=== PATIENT | female | born 1955 | race Caucasian/White ===

== ENCOUNTER 2016-08-01 13:26 | Outpatient (CLI) | payer BC | END 2016-08-01 13:27 | disposition critical access hospital (66) | LOC: EMS 13:26 | PROVIDERS: ATTEND Surgery | DX: R07.9 Chest pain, unspecified (principal); R11.0 Nausea | CPT/HCPCS: A0425; A0427 ==

== ENCOUNTER 2016-08-01 13:39 | Observation (INO) | payer BC ==
[2016-08-01] MEDS ORDERED: NITROGLYCERIN 2% PASTE TOP STA (13:56)
[2016-08-01] MEDS ORDERED: NITROGLYCERIN 2% PASTE TOP ONE (14:05)
--- NOTE | 2016-08-01 14:12 | ED Physician Documentation ---
History of Present Illness - Stated complaint Stated Complaint: CP - Chief complaint Chief Complaint: Cardiac - Additonal information Additional information: hx from EMS and pt 61 f hx CAD s/p ME stents approx 2 weeks s/p laminectomy and was hospitalized for 4 days this AM was doing PT and developed chest discomfort that feels like her prior cardiac event no SOA diaphoresis but + nausea no leg pain or swelling Review of Systems Constitutional: denies: Fever, Chills, Sweats Cardiac: reports: Chest pain / pressure Respiratory: denies: Dyspnea GI: reports: Nausea Musculoskeletal: denies: Extremity pain, Extremity swelling Endocrine: denies: Easy bruising / bleeding Immunocompromised: denies: Immunocompromised PD PAST MEDICAL HISTORY - Past Medical History Past Medical History: Yes Cardiovascular: High cholesterol, Coronary artery disease, ME Respiratory: None Neuro: Other Endocrine/Autoimmune: Other Psych: Depression, Anxiety, Post traumatic stress disorder, Other Musculoskeletal: Osteoarthritis, Fatigue, Chronic back pain, Other - Past Surgical History Past Surgical History: Yes Ortho: Spine surgery Cardiovascular: Cardiac catheterization, Angioplasty - Allergies Allergies/Adverse Reactions: Allergies Allergy/AdvReac Type Severity Reaction Status Date / Time bupropion HCl * Allergy Anaphylaxis Verified 08/01/16 13:51 [From Wellbutrin] - Social History Does the pt smoke?: No Smoking Status: Never smoker PD ED PE NORMAL - Vitals Vital signs reviewed: Yes - General General: Alert and oriented X 3 - HEENT HEENT: Atraumatic - Cardiac Cardiac: RRR - Respiratory Respiratory: No respiratory distress, Clear bilaterally - Abdomen Abdomen: Soft, Non tender - Neuro Neuro: Alert and oriented X 3 Results - Vitals Vitals: Vital Signs - 24 hr 08/01/16 13:40 Temperature 35.9 C L Heart Rate 82 Respiratory 15 Rate Blood Pressure 141/76 H O2 Saturation 97 Oxygen O2 Source Room air - EKG (time done) 1351 Rate: Rate (enter#) Rhythm: NSR [place]: Normal Intervals: Prolonged QT Ischemia: Normal ST segments 1532 Rate: Rate (enter#) (83) Rhythm: NSR Intervals: Prolonged QT Ischemia: ST depression (slight inferior leads). No: ST elevation c/w ischemia - Labs Labs: Laboratory Tests 08/01/16 08/01/16 08/01/16 14:36 14:36 14:36 WBC 5.5 RBC 3.64 L Hgb 11.2 L Hct 33.8 L MCV 92.7 MCH 30.7 MCHC 33.2 RDW 14.7 Plt Count 340 MPV 6.8 L Neut # 3.9 Lymph # 1.0 L Evangeline # 0.4 Eos # 0.2 Baso # 0.0 Absolute Nucleated RBC 0.00 Nucleated RBCs 0.0 Sodium 136 Potassium 3.3 L Chloride 104 Carbon Dioxide 22 Anion Gap 10.0 BUN 13 Creatinine 0.9 Estimated GFR (MDRD) 63 L Glucose 155 H Calcium 8.6 Total Bilirubin 0.6 AST 30 ALT 22 Alkaline Phosphatase 98 Troponin I 0.06 Total Protein 6.3 L Albumin 3.3 Globulin 3.0 Albumin/Globulin Ratio 1.1 Lipase 13 L - Rads (name of study) CXR Radiology: See rad report (NACPD) PD MEDICAL DECISION MAKING - ED course ED course: 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
[2016-08-01] MEDS ORDERED: PROMETHAZINE INJ 12.5 MG in SODIUM CHLORIDE 0.9% 50 ML IV STA ×2 (14:14→15:24)
[2016-08-01] MEDS ORDERED: PROMETHAZINE 25 MG/1 ML VIAL ONE ×2 (14:18→15:38)
--- NOTE | 2016-08-01 14:20 | XRAY Preliminary Report ---
Exam: XR Chest 1 View IMPRESSION: Normal single view chest. [facility] SITE ID: [id number]
--- NOTE | 2016-08-01 14:30 | XRAY Report ---
EXAM: CHEST RADIOGRAPHY EXAM DATE: 08/01/2016 02:13 PM. CLINICAL HISTORY: Chest pain. COMPARISON: None. TECHNIQUE: 1 view. FINDINGS: Lungs/Pleura: No focal opacities evident. No pleural effusion. No pneumothorax. Mediastinum: Within exam limitations, cardiomediastinal contour is normal. Other: None. IMPRESSION: Normal single view chest. [facility] Referring Provider Line: [phone] SITE ID: [id number]
[2016-08-01 14:44] LABS: BASOPHILS % (AUTO) 0.7 %; EOSINOPHILS # (AUTO) 0.2 10^3/uL (0.0-0.7); EOSINOPHILS % (AUTO) 3.5 %; HCT - HEMATOCRIT 33.8 % (37.0-47.0); HGB - HEMOGLOBIN 11.2 g/dL (12.0-16.0); LYMPHOCYTES % (AUTO) 17.8 %; MEAN CORPUSCULAR HEMOGLOBIN 30.7 pg (27.0-31.0); MEAN CORPUSCULAR HGB CONC 33.2 g/dL (32.0-36.0); MEAN CORPUSCULAR VOLUME 92.7 fL (81.0-99.0); MEAN PLATELET VOLUME 6.8 fL (7.9-10.8); MONOCYTES # (AUTO) 0.4 10^3/uL (0.0-1.0); MONOCYTES % (AUTO) 7.4 %; NEUTROPHILS # (AUTO) 3.9 10^3/uL (1.5-6.6); NEUTROPHILS % (AUTO) 70.6 %; RED BLOOD COUNT 3.64 10^6/uL (4.20-5.40); RED CELL DISTRIBUTION WIDTH 14.7 % (12.0-15.0); UNCORRECTED WHITE BLOOD COUNT 5.5 x10^3/uL; WHITE BLOOD COUNT 5.5 x10^3/uL (4.8-10.8)
[2016-08-01 14:58] LABS: ALBUMIN/GLOBULIN RATIO 1.1 (1.0-2.2); BILIRUBIN,TOTAL 0.6 mg/dL (0.2-1.0); CALCIUM 8.6 mg/dL (8.5-10.3); CREATININE 0.9 mg/dL (0.4-1.0); POTASSIUM 3.3 mmol/L (3.5-5.0); TOTAL PROTEIN 6.3 g/dL (6.7-8.2)
[2016-08-01] MEDS ORDERED: MORPHINE 2 MG/ML SYRINGE IVP STA (15:24)
[2016-08-01] MEDS ORDERED: PROCHLORPERAZINE 10 MG/2 ML VIAL IVP PRN (15:37)
[2016-08-01] MEDS ORDERED: ACETAMINOPHEN 325 MG TABLET PO PRN (15:37)
[2016-08-01] MEDS ORDERED: ONDANSETRON ODT 4 MG TABLET TL PRN (15:37)
[2016-08-01] MEDS ORDERED: SODIUM CHLORIDE FLUSH 0.9% 10 ML SYRINGE IVP PRN (15:37)
[2016-08-01] MEDS ORDERED: HYDROcod/ACETAM 5/325 MG TABLET PO PRN (15:37)
[2016-08-01] MEDS ORDERED: ONDANSETRON 4 MG/2 ML VIAL IVP PRN (15:37)
[2016-08-01] MEDS ORDERED: MORPHINE 2 MG/ML SYRINGE ONE (15:38)
[2016-08-01] MEDS ORDERED: POTASSIUM CHLORIDE 20 MEQ TABLET PO SCH (16:00)
[2016-08-01] MEDS ORDERED: PANTOPRAZOLE 40 MG TABLET PO SCH (16:00)
[2016-08-01] MEDS ORDERED: IOPAMIDOL-300 100 ML VIAL IVP ONE (17:39)
--- NOTE | 2016-08-01 18:05 | HISTORY & PHYSICAL EXAMINATION ---
DATE OF ADMISSION: 08/01/2016 PRIMARY CARE PROVIDER: Augie Kelley MD. ADMITTING PROVIDER: Katharina Zamudio MD. CHIEF COMPLAINT: Left-sided chest pain. HISTORY OF PRESENT ILLNESS: The patient is a 61-year-old female who already has a diagnosis of mello ry artery disease and has had an NY with stents placed at [facility] in [place], [place] 05/10/2007. She moved to [facility] about 2 years ago and while she has a primar care provider, neurologist, and senior office assistant, she was not having any cardiac problems, so had not needed a treating machine operator. She is not usually having angina, but this morning she was doing physical the rapy and developed chest discomfort on the left side of her chest with nausea and some slight left ar m pain and was very similar to her angina with her NY. It had been ongoing for a couple of hours and unchanged, so she came to the emergency room. EKG has nonspecific ST-T changes, but is otherwise unre markable and her initial troponin is 0.06. Her other risk factors include autoimmune disease in the f orm of Sjogren's, controlled hypertension, but no diabetes. No smoking, no hyperlipidemia. She is a s edentary person. She is now placed in observation for rule out myocardial infarction. PAST MEDICAL HISTORY: 1. Autoimmune disorder in the form of Sjogren's. 2. Hypertension for which she takes half losartan twice a day. 3. G5, P2, 0-3-2. Status post right oophorectomy and a vaginal hysterectomy, 1 miscarriage, 2 abortio ns. 4. Bilateral feet fractures. 5. Cholecystectomy after a severe episode of cholecystitis. She ended up having an open cholecystecto my given the severity of infection. One year later she developed tenderness in the wound and it opene d up and a suture came out. Surgery was done in 2007. 6. Spondylolisthesis and osteoarthritis of the spine. Status post surgery at [facility] with Brynn Valdes 2 weeks ago. 7. PTSD, borderline personality disorder, depressive disorder. Followed by a psychiatrist on a regula r basis. 8. History of migraine headaches years ago. After 3 and the use of Topamax they resolved. ALLERGIES: SHE IS ALLERGIC TO BUPROPION. MEDICATIONS: 1. Atorvastatin 40 mg p.o. daily. 2. Fluticasone nasal spray 2 sprays daily. 3. Gabapentin 300 mg in the morning, 900 mg in the evening. 4. Levothyroxine 125 mcg daily. 5. Forada 300 mg in the evening. 6. Losartan 12.5 mg p.o. b.i.d. 7. Metoprolol 12.5 mg p.o. daily. 8. Prazosin 5 mg p.o. daily. 9. Protriptyline 10 mg daily. 10. Prozac 20 mg daily. 11. Topamax 100 mg daily. 12. Trazodone 50 mg in the evening. SOCIAL HISTORY: She never smoked. She rarely drank. She was born in [place]. Spent most of he r adult life in [place] and raising her children and being . Her 's job brought her to [place] 2 years ago. He was working up until yesterday when he took an early long term because the [place] he worked for [employer]. She has no history of recreational substance abuse. FAMILY HISTORY: Dad at age 79 of complications of congestive heart failure, osteoarthritis. Mom at age 70 of ovarian cancer. Of 2 sisters, they have osteoarthritis, goiter, tremor, reflux dise ase, bone marrow dyscrasia, personality disorder and eating disorder between the 2 of them. Of her 2 sons there is alcohol abuse, smoking and diabetes between the 2 of them. REVIEW OF SYSTEMS: She is a relatively sedentary person because of her diffuse joint pain, but she duron s lost about 48 pounds right after her bypass surgery that was intentional, but no other recent weigh t changes. ENT: She sees an eye doctor regularly. In the past, she has been on Plaquenil and needed to have eyes evaluated. No glaucoma or cataracts. No problems with her teeth. No dysphagia, dysarthria, facial dy sesthesia. She is having some early deafness. PULMONARY: Denies coughing, wheezing. Has mild chronic dyspnea on exertion because of lack of activit y. CARDIAC: Positive as above. GI: She has had borderline eating disorder. Diet unchanged. No recent change in abdominal status or a bdominal complaints. GENITOURINARY: Denies urgency, frequency, dysuria, flank pain, hematuria. JOINTS: Hurts all the time, but no changes. SKIN: No manifestation of scleroderma yet. PSYCHIATRIC: She has had suicidal ideation in the past, but has never followed through. Also has had self mutilation, but is currently seeing a psychiatrist and she feels like she is quite stable. FASHION MODEL: Migraine headaches many years ago, are gone. She denies syncope, seizures, memory loss. PHYSICAL EXAMINATION: VITAL SIGNS: On examination in the emergency room, her is at the bedside. Temperature is 36.9 , pulse is 83, blood pressure 142/74, respirations 16, 98% on room air. GENERAL: She is a large, big boned middle aged white female who looks her stated age, in no acute dis tress, quite sleepy and mouth very, very dry, needing multiple sips of water to let her keep talking. HEAD AND NECK: Exam shows generalized alopecia with salt and pepper cordero hair, thin eyebrows. Still h as eyelashes. Pupils are reactive. Sclerae nonicteric. Lips thin. Oral mucosa is dry but pink. NECK: Supple. No goiter or bruits, no thyromegaly. LUNGS: Clear to auscultation and percussion with no increased respiratory effort. No crackles, rhonch i, or wheezing. CARDIOVASCULAR: PMI normally placed with a regular rate and rhythm. No murmurs. ABDOMEN: Hugely obese, soft, nontender. Across the upper quadrant you see the open cholecystectomy sc ar with probably a small ventral hernia in the lateral aspect. There are no abdominal masses palpable . Normal bowel sounds. No rebound or guarding, nontender. Normal bowel sounds. EXTREMITIES: Thick boned, thick ankles, but no clubbing, cyanosis or edema. Excellent dorsalis pedis foot pulses. I do note that the left hand is paler than the right hand, but pulses are equal. NEUROLOGIC: Neurologically she is alert and oriented x3. Speech is normal. Memory appears intact, his tory appears lucid and consecutive. She can follow 2-step commands. While she is lying there I notice d that she has a resting tremor of both hands and she says that she may have an essential tremor. She has already been evaluated by Neurology. There is no cogwheel rigidity. She moves both arms spontane ously in reaching for a cup of water from her , to rearrange her hair and the bedding. She daniela l lift her legs off the bed for me and plantar and dorsiflex her feet normally. LABORATORIES: Sodium 136, potassium 3.3, BUN 13, creatinine 0.9, random glucose 155. Troponin #1 is 0 .06. White cell count 5.5, hemoglobin 11.2, hematocrit 33.8, MCV 92, platelets 340. IMAGING: EKG (twice) and she had a sinus rhythm, low voltage in the precordial leads, and RSR in V2, with a slightly prolonged QT interval, but no acute ischemic changes. Chest x-ray: Shows a normal single view. ASSESSMENT/PLAN: 1. Chest pain. This pain is similar to her angina, and reminiscent of her pain associated with her pr evious myocardial infarction. This concerns me. Right now place in observation, and she has already r eceived aspirin. I will give her a beta mily, continue nitroglycerin paste. In the emergency room, they tried to give her sublingual nitroglycerin, but because of the Sjogren's it did not dissolve an d 15 minutes later the tablet was still underneath her tongue. Morphine also given. So far she is darron n free. I explained to her that she is at risk for a myocardial infarction more than other patient's who have not had myocardial infarctions. If her second set of troponins bumps up, to be prepared to b e transferred to either [facility] or [facility] or whoever has a bed. She is amenable t o that. 2. Hypertension, mildly elevated. Resume usual medications. 3. Hyperlipidemia. Check fasting lipid panel in the morning. 4. Multiple psychiatric diagnoses. Continue all usual medications. Watch the QT interval on EKG. [facility] k EKG in a.m. 5. CODE STATUS: FULL CODE STATUS. She says that she has an advanced directive at home. She did not br ing it in. She wants to be resuscitated for the first time. In other words, if she has an NY with tamela den cardiac with this episode, she wants to be resuscitated. Down the road if after a prolonged illness or change in quality of her life she feels like she does not want to be resuscitated she daniela l let us know. 6. Deep venous thrombosis prophylaxis will be MÓNICA butts. I also want her to ambulate in the hallways a s much as possible. JOB #: [id number] EXT JOB #:[id number]
--- NOTE | 2016-08-01 18:11 | CT Preliminary Report ---
Exam: CT Chest Angio (PE) IMPRESSION: 1. No pulmonary embolus. 2. No aortic aneurysm or dissection. 3. Mild mosaic attenuation, otherwise unremarkable lungs. [facility] SITE ID: [id number]
--- NOTE | 2016-08-01 18:13 | CT Report ---
EXAM: CT ANGIOGRAM CHEST EXAM DATE: 08/01/2016 05:40 PM. CLINICAL HISTORY: Post op chest pain. COMPARISON: None. TECHNIQUE: Routine helical imaging was performed through the chest in the pulmonary arterial phase. I V Contrast: Amt/type. Reconstructions: Coronal 3-D MIP reconstructions.Sagittal and coronal. In accordance with CT protocol optimization, one or more of the following dose reduction techniques w ere utilized for this exam: automated exposure control, adjustment of mA and/or KV based on patient s ize, or use of iterative reconstructive technique. FINDINGS: Pulmonary Arteries: Diagnostic quality: Adequate through the segmental arteries. No evidence for acute or chronic pulmona ry emboli. RV/LV is within normal limits. There is no interventricular septal bowing. There is no reflux of cont rast material in the IVC. Lungs/Pleura: Mild mosaic attenuation. No consolidation, nodules, or edema. No effusions or pneumotho rax. Mediastinum: Coronary artery calcification noted. No cardiac enlargement or adenopathy. Thoracic Aorta: Unremarkable. Upper Abdomen: Unremarkable. Other: None. IMPRESSION: 1. No pulmonary embolus. 2. No aortic aneurysm or dissection. 3. Mild mosaic attenuation, otherwise unremarkable lungs. [facility] Referring Provider Line: [phone] SITE ID: [id number]
[2016-08-01] MEDS ORDERED: HYDROcod/ACETAM 10 MG/325 MG TABLET PO PRN (19:50)
[2016-08-01] MEDS ORDERED: HEPARIN CARDIAC INITIAL BOLUS IVP SCH (20:30)
[2016-08-01] MEDS ORDERED: HEPARIN 5,000 UNIT/ML VIAL IVP PRN (20:34)
[2016-08-01] MEDS ORDERED: HYDROXYCHLOROQUINE 200 MG TABLET PO SCH (21:00)
[2016-08-01] MEDS ORDERED: LITHIUM 150 MG CAPSULE PO SCH (21:00)
[2016-08-01] MEDS ORDERED: PROTRIPTYLINE HCL 5 MG PO SCH (21:00)
[2016-08-01] MEDS ORDERED: traZODone 50 MG TABLET PO SCH (21:00)
[2016-08-01] MEDS ORDERED: GABAPENTIN 300 MG CAPSULE PO SCH (21:00)
[2016-08-01] MEDS ORDERED: HEPARIN 25,000 UNITS/500 ML 500 ML IV SCH (21:00)
[2016-08-01] MEDS ORDERED: ATORVASTATIN 40 MG TABLET PO SCH (21:00)
[2016-08-01] MEDS ORDERED: NITROGLYCERIN 2% PASTE TOP SCH (22:00)
[2016-08-01] MEDS ORDERED: SODIUM CHLORIDE FLUSH 0.9% 10 ML SYRINGE IVP SCH (22:00)
[2016-08-01] MEDS ORDERED: PILOCARPINE HCL 5 MG PO SCH (22:00)
[2016-08-01 22:21] VITALS: BP 114/69
[2016-08-02] MEDS ORDERED: LEVOTHYROXINE 125 MCG TABLET PO SCH (07:00)
[2016-08-02] MEDS ORDERED: TOPIRAMATE 100 MG TABLET PO SCH (09:00)
[2016-08-02] MEDS ORDERED: ASPIRIN CHEW 81 MG TABLET PO SCH (09:00)
[2016-08-02] MEDS ORDERED: LOSARTAN 50 MG TABLET PO SCH (09:00)
[2016-08-02] MEDS ORDERED: PRAZOSIN 1 MG CAPSULE PO SCH (09:00)
[2016-08-02] MEDS ORDERED: GABAPENTIN 300 MG CAPSULE PO SCH (09:00)
[2016-08-02] MEDS ORDERED: POLYETHYLENE GLYCOL 3350 17 GM PACKET PO SCH (09:00)
[2016-08-02] MEDS ORDERED: METOPROLOL SUCCINATE 25 MG TABLET PO SCH (09:00)
[2016-08-02] MEDS ORDERED: FLUoxetine 10 MG CAPSULE PO SCH (09:00)
[2016-08-02] MEDS ORDERED: FLUTICASONE NASAL SPRAY NAS SCH (09:00)
[2016-08-02] MEDS ORDERED: METOPROLOL TARTRATE 25 MG TABLET PO SCH (09:00)
--- NOTE | 2016-08-03 08:09 | DISCHARGE SUMMARY ---
DATE OF OBSERVATION: 08/01/2016 DATE OF DISCHARGE: 08/01/2016 PRIMARY CARE PHYSICIAN: Augie Kelley MD DISCHARGING PHYSICIAN: Dez Padilla MD DISCHARGE DIAGNOSES 1. Non-ST elevation myocardial infarction. 2. Chest pain. 3. History of coronary artery disease. 4. Hypertension. 5. Hyperlipidemia. HOME MEDICATIONS 1. Aspirin 81 mg p.o. daily. 2. Vicodin 1 tablet p.o. q.4h. p.r.n. for pain. 3. Plaquenil 200 mg p.o. b.i.d. 4. Pilocarpine 5 mg p.o. 5 times a day. 5. Protriptyline 5 mg p.o. b.i.d. 6. Topamax 100 mg p.o. daily. 7. Metoprolol tartrate 12.5 mg p.o. daily. 8. [place] 300 mg p.o. q.p.m. 9. Gabapentin 600 mg p.o. q.p.m. 10. Gabapentin 300 mg p.o. at 9 a.m. and 1600 hours. 11. Trazodone 50 mg p.o. q.p.m. 12. Prazosin 5 mg p.o. daily. 13. Losartan 12.5 mg p.o. daily. 14. Levothyroxine 125 mcg p.o. daily. 15. Fluticasone 2 sprays each nostril daily. 16. Lipitor 40 mg p.o. q.p.m. 17. Prozac 20 mg p.o. daily. DISCHARGE MEDICATIONS 1. Heparin drip. 2. Aspirin 81 mg p.o. daily. 3. Lipitor 40 mg p.o. at bedtime. 4. Plaquenil 200 mg p.o. b.i.d. 5. Synthroid 125 mcg p.o. daily. 6. [place] 300 mg p.o. q.p.m. 7. Losartan 12.5 mg p.o. daily. 8. Lopressor 12.5 mg p.o. b.i.d. 9. Nitroglycerin 1 inch topical t.i.d. 10. Zofran 4 mg p.o. q.6 hours p.r.n. for nausea. 11. Prazosin 5 mg p.o. daily. 12. Topamax 100 mg p.o. daily. 13. Trazodone 50 mg p.o. q.p.m. HOSPITAL COURSE: The patient is a 61-year-old female with a past medical history significant for hypertension, hyperlipidemia, history of CAD with stent in [place] in May 2007, autoimmune disorder in the form of Sjogren's, bilateral feet fractures, spondylolisthesis, and osteoarthritis status post surgical repair of her vertebra just 2 weeks ago at [facility], PTSD, and migraine headaches, who presented to the emergency department with a chief complaint of chest pain. The patient stated that the chest pain started early in the morning while she was doing physical activity. She stated it was located on the left side of the chest with accompanied nausea and diaphoresis. She had slight feeling of tingling in her left arm. This pain was very similar to what she felt when she had had her MRI. The patient's pain was ongoing and did not size changer a couple of hours, so she came in to the emergency department. On presentation, her EKG had nonspecific ST changes, but was otherwise unremarkable. Her initial troponin was 0.06. She was given nitro paste, with which the chest pain did resolve. The patient was placed in observation for serial troponins and telemetry monitoring. The patient had no further episodes of chest pain, but her second troponin came back as 1.22. Therefore, we called Cardiology at [facility] and I spoke with Dr. Murry, who was kind enough to accept the patient in transfer to [facility] for further cardiac evaluation, likely cardiac catheterization. Prior to transfer, patient was started on a heparin drip. I also spoke with the hospitalist at [facility], , and he was kind enough to accept the patient and will be admitting the patient at [facility]. PHYSICAL EXAMINATION AT DISCHARGE VITAL SIGNS: Temperature 36.4, heart rate 79, blood pressure 123/80, respiratory rate 16, O2 saturation 100% on room air. GENERAL: The patient is slightly obese. She is alert, able to answer all my questions appropriately. She does not appear to be in any acute distress. HEENT: Pupils are equal and reactive to light. Extraocular muscles are intact. Mucous membranes are moist. There is no conjunctival pallor or scleral icterus noted. NECK: Supple. No thyromegaly. No JVD. Trachea is midline. LYMPH NODES: There is no cervical or axillary lymphadenopathy noted. CARDIOVASCULAR: S1, S2, regular rate and rhythm. No murmurs, rubs, or gallops. LUNGS: Clear to auscultation bilaterally. No wheezes, rhonchi, or crackles. ABDOMEN: Soft, nontender, nondistended. Bowel sounds are present in all 4 quadrants. EXTREMITIES: There is no lower extremity edema. Peripheral pulses are palpable. There is no cyanosis or clubbing. MUSCULOSKELETAL: The patient has good range of motion. No joint tenderness, no joint effusions. SKIN: No skin rashes, lesions, cellulitis, or abscesses. NEUROLOGIC: The patient is alert and oriented x3. Cranial nerves 2 through 12 are grossly intact. Strength is grossly normal. Sensations are intact. LABORATORY: WBC is 5.5, hemoglobin 11.2, hematocrit 33.8, platelet count 340. Sodium 136, potassium 3.3, chloride 104, carbon dioxide 22, BUN 13, creatinine 0.9, glucose 155, calcium 8.6. Total bilirubin 0.6, AST 30, ALT 22, alkaline phosphatase 98. Troponin initial 0.06, repeat 1.22. Total protein 6.3, albumin 3.3, lipase 13. IMAGING 1. Chest x-ray. Impression: Normal single view chest. 2. CT angio of the chest. Impression: a. No pulmonary embolism. b. No aortic aneurysm or dissection. c. Mild mosaic attenuation, otherwise unremarkable lungs. FOLLOWUP/RECOMMENDATIONS: The patient is being transferred to [facility] and will be admitted there by the hospitalist service, Dr. Joy and will be seen by Dr. Murry in consultation, of Cardiology. The patient is being transferred with a heparin drip. She presented with chest pain and was found to have an NSTEMI. The patient was in stable condition when she was taken by ambulance. Greater than 30 minutes was spent on discharge. JOB #: [id number] EXT JOB #:[id number] CHRISTIAN
--- NOTE | 2016-08-18 10:56 | Discharge Plan ---
Discharge Plan Disposition: 02 Transfer Acute Care Hosp Condition: Fair Diet: Cardiac Activity Restrictions: Activity as Tolerated Shower Restrictions: No Driving Restrictions: No Weight Bearing: Full Weight No Smoking: If you smoke, Please STOP! Call for help. Follow-up with: Augie Kelley MD [Primary Care Provider] -
== END 2016-08-01 22:20 | disposition short-term general hospital (02) ==
LOC: EDUNIT# → EDBD → ED 13:39 → MS 15:37
PROVIDERS: ADMIT Specialist; ATTEND Internal Medicine
DX: I21.4 Non-ST elevation (NSTEMI) myocardial infarction (principal); I25.119 Atherosclerotic heart disease of native coronary artery with unspecified angina pectoris; I10 Essential (primary) hypertension; E78.5 Hyperlipidemia, unspecified; E66.9 Obesity, unspecified; M35.00 Sjogren syndrome, unspecified; F43.10 Post-traumatic stress disorder, unspecified; M43.10 Spondylolisthesis, site unspecified; M47.9 Spondylosis, unspecified; F60.3 Borderline personality disorder; F32.9 Major depressive disorder, single episode, unspecified; G43.909 Migraine, unspecified, not intractable, without status migrainosus; I25.2 Old myocardial infarction; Z95.5 Presence of coronary angioplasty implant and graft; Z98.890 Other specified postprocedural states; Z68.34 Body mass index [BMI] 34.0-34.9, adult
CPT/HCPCS: 36415; 71010; 71275; 80053; 83690; 84484; 85025; 85520; 93005; 93010; 96365; 96366; 96375; 99234; 99284; A9270; Q9967; 96372

== ENCOUNTER 2016-08-01 22:23 | Outpatient (CLI) | payer BC | END 2016-08-01 22:24 | disposition short-term general hospital (02) | LOC: EMS 22:23 | PROVIDERS: ATTEND Surgery | DX: R07.9 Chest pain, unspecified (principal); R11.0 Nausea | CPT/HCPCS: A0425; A0426 ==

== ENCOUNTER 2016-11-27 13:11 | Outpatient (CLI) | payer BC ==
--- NOTE | 2016-11-28 15:48 | Mammography Report ---
DIGITAL SCREENING MAMMOGRAM: 11/27/2016 CLINICAL INDICATION: A 61-year-old, for screening. COMPARISON: Films from [place], [place] dated 07/31/2010, 06/16/2012, 08/03/2014. TECHNIQUE: Routine CC and MLO projections were obtained of the breasts. FINDINGS: The breasts again demonstrate scattered fibroglandular densities bilaterally. Coarse and p unctate, typically benign calcifications are present. No suspicious masses, clustered microcalcificat ions, or regions of architectural distortion are identified. IMPRESSION: BENIGN FINDINGS. RECOMMENDATION: ROUTINE ANNUAL SCREENING UNLESS OTHERWISE CLINICALLY INDICATED. BIRADS CATEGORY 2-BENIGN FINDINGS. STANDARD QUALIFYING STATEMENTS 1. This examination was reviewed with the aid of Computer-Aided Detection (CAD). 2. A negative or benign imaging report should not delay biopsy if clinically suspicious findings are present. Consider surgical consultation if warranted. More than 5% of cancers are not identified by i maging. 3. Dense breasts may obscure an underlying neoplasm. JOB #: [id number] EXT JOB #:[id number]
== END 2016-11-27 13:12 | disposition home or self-care (01) ==
LOC: DI 13:11
PROVIDERS: ATTEND Physician Assistant
DX: Z12.31 Encounter for screening mammogram for malignant neoplasm of breast (principal)
CPT/HCPCS: 77067

== ENCOUNTER 2017-05-06 14:32 | Outpatient (CLI) | payer BC ==
--- NOTE | 2017-05-07 08:51 | XRAY Report ---
THREE VIEW RIGHT THUMB: 05/06/2017 CLINICAL INDICATION: Pain. FINDINGS: AP, lateral, oblique views of the right thumb demonstrate osteoarthritis of the first carpometacarpal joint and interphalangeal joint. There is no evidence of acute fracture or dislocation. No foreign body is seen in the soft tissues. IMPRESSION: OSTEOARTHRITIS. TD: 05/07/2017 08:50
== END 2017-05-06 14:33 | disposition home or self-care (01) ==
LOC: DI 14:32
PROVIDERS: ATTEND Specialist
DX: M79.644 Pain in right finger(s) (principal); M19.041 Primary osteoarthritis, right hand
CPT/HCPCS: 73140

== ENCOUNTER 2017-09-08 19:04 | Emergency (ER) | payer BC ==
[2017-09-08] MEDS ORDERED: SODIUM CHLORIDE 0.9% 500 ML IV ONE (20:41)
[2017-09-08] MEDS ORDERED: LORazepam 2 MG/ML VIAL IVP STA (20:41)
[2017-09-08 20:53] LABS: BASOPHILS % (AUTO) 0.9 %; EOSINOPHILS # (AUTO) 0.2 10^3/uL (0.0-0.7); EOSINOPHILS % (AUTO) 3.8 %; LYMPHOCYTES % (AUTO) 25.1 %; MEAN CORPUSCULAR HGB CONC 30.9 g/dL (32.0-36.0); MEAN CORPUSCULAR VOLUME 90.6 fL (81.0-99.0); MEAN PLATELET VOLUME 7.9 fL (7.9-10.8); MONOCYTES # (AUTO) 0.4 10^3/uL (0.0-1.0); MONOCYTES % (AUTO) 8.9 %; NEUTROPHILS # (AUTO) 2.5 10^3/uL (1.5-6.6); NEUTROPHILS % (AUTO) 61.3 %; PLT - PLATELET COUNT 201 10^3/uL (130-450); RED BLOOD COUNT 2.85 10^6/uL (4.20-5.40); RED CELL DISTRIBUTION WIDTH 16.1 % (12.0-15.0); WHITE BLOOD COUNT 4.1 x10^3/uL (4.8-10.8)
[2017-09-08 21:10] LABS: ALBUMIN 3.3 g/dL (3.2-5.5); ALKALINE PHOSPHATASE 63 IU/L (42-121); ALT ALANINE AMINOTRANSFERASE < 10 IU/L (10-60); AST ASPARTATE AMINOTRANSFERASE 17 IU/L (10-42); BILIRUBIN,TOTAL 0.5 mg/dL (0.2-1.0); BUN - BLOOD UREA NITROGEN 15 mg/dL (6-20); CALCIUM 8.5 mg/dL (8.5-10.3); CARBON DIOXIDE - CO2 23 mmol/L (21-32); CHLORIDE 108 mmol/L (101-111); CREATININE 1.1 mg/dL (0.4-1.0); GFR - MDRD 50 (>89); GLUCOSE 98 mg/dL (70-100); LIPASE 24 U/L (22-51); MAGNESIUM 1.8 mg/dL (1.7-2.8); SALICYLATE < 6.0 mg/dL; SODIUM 138 mmol/L (135-145); TOTAL PROTEIN 6.7 g/dL (6.7-8.2)
[2017-09-08 21:24] LABS: MUDS CUTOFF CONCENTRATIONS CUTOFF CONC BELOW:
[2017-09-08 21:25] LABS: BILIRUBIN,URINE NEGATIVE (NEGATIVE); GLUCOSE, URINE (UA) NEGATIVE (NEGATIVE); KETONES,URINE (UA) NEGATIVE (NEGATIVE); LEUKOCYTE ESTERASE, URINE NEGATIVE (NEGATIVE); NITRITE,URINE NEGATIVE (NEGATIVE); OCCULT BLOOD,URINE NEGATIVE (NEGATIVE); PH,URINE 5.5 PH (5.0-7.5); PROTEIN,URINE NEGATIVE (NEGATIVE); UROBILINOGEN,URINE 0.2 (NORMAL) E.U./dL (NORMAL)
[2017-09-08 21:26] LABS: CLARITY,URINE CLEAR (CLEAR)
[2017-09-08 21:38] LABS: AMPHETAMINE SCREEN,URINE NEGATIVE (NEGATIVE); BENZODIAZEPINES SCREEN, URINE NEGATIVE (NEGATIVE); COCAINE SCREEN URINE NEGATIVE (NEGATIVE); METHADONE SCREEN, URINE NEGATIVE (NEGATIVE); METHAMPHETAMINES SCREEN, URINE NEGATIVE (NEGATIVE); OPIATE SCREEN, URINE POSITIVE (NEGATIVE); OXYCODONE SCREEN, URINE NEGATIVE (NEGATIVE); PROPOXYPHENE SCREEN, URINE NEGATIVE (NEGATIVE); TRICYCLIC ANTIDEPRESSANT,URINE NEGATIVE (NEGATIVE)
--- NOTE | 2017-09-08 21:51 | CT Report ---
Procedure Date: 09/08/2017 Accession Number: [id number] / [id number] Procedure: CT - Head W/O CPT Code: FULL RESULT: EXAM: CT HEAD EXAM DATE: 09/08/2017 09:32 PM. CLINICAL HISTORY: Peripheral vision loss. COMPARISON: None. TECHNIQUE: Multiaxial CT images were obtained from the foramen magnum to the vertex. Reformats: Coronal. IV contrast: None. In accordance with CT protocol optimization, one or more of the following dose reduction techniques were utilized for this exam: automated exposure control, adjustment of mA and/or KV based on patient size, or use of iterative reconstructive technique. FINDINGS: Parenchyma: No intraparenchymal hemorrhage. No evidence of mass, midline shift, or CT findings of infarction. Mendenhall-white differentiation is distinct. Extraaxial Spaces: Normal for age. No subdural or epidural collections identified. Ventricles: Normal in size and position. Sinuses and Orbits: Imaged paranasal sinuses, orbits, and mastoids show no significant abnormality. Bones: No evidence of fracture or calvarial defect. Other: None. IMPRESSION: No acute intracranial abnormality. [facility]
--- NOTE | 2017-09-08 22:18 | XRAY Report ---
Procedure Date: 09/08/2017 Accession Number: [id number] / [id number] Procedure: XR - Chest 2 View X-Ray CPT Code: 21606 FULL RESULT: EXAM: CHEST RADIOGRAPHY EXAM DATE: 09/08/2017 09:53 PM. CLINICAL HISTORY: Nausea. Weakness. COMPARISON: 08/01/2016. TECHNIQUE: 2 views. FINDINGS: Lungs/Pleura: No focal opacities evident. No pleural effusion. No pneumothorax. Normal volumes. Mediastinum: Heart and mediastinal contours are unremarkable. Other: No bony abnormality identified. IMPRESSION: Normal 2-view chest radiography. [facility]
--- NOTE | 2017-09-08 23:13 | ED Physician Documentation ---
History of Present Illness - Stated complaint Stated Complaint: VISION LOSS/HIP PX/N/POST OP/DIZZY - Chief complaint Chief Complaint: Neuro - History obtained from History obtained from: Patient - Additonal information Additional information: 62-year-old female presents to the emergency department with multiple complaints. The patient has had peripheral vision loss for the past 4 days and has been seen by ophthalmology. Ophthalmology did not identify any clear etiology and the patient is scheduled to follow-up tomorrow with the digital research analyst for further workup and management of her symptoms. There is been no significant change in the patient's peripheral vision abnormality. The patient denies eye pain, eye redness, nausea, vomiting, headache or ocular trauma. The patient recently had a right hip replacement and has had ongoing pain at the site of the surgery. The patient's been using increased doses of pain meds. The patient denies swelling, redness, wound drainage, fevers or skin changes of the lower extremity. The patient also reports feeling very anxious today. The patient denies chest pain, shortness of breath, dyspnea on exertion. The patient reports the symptoms as moderate. No triggering factors. No relieving factors. No other associated symptoms Review of Systems Constitutional: denies: Fever, Chills Eyes: reports: Loss of vision (Peripheral vision loss). denies: Photophobia, Discharge, Irritation Ears: denies: Ear pain, Tinnitus/ringing Nose: denies: Congestion Throat: denies: Sore throat Cardiac: denies: Chest pain / pressure Respiratory: denies: Dyspnea GI: denies: Abdominal Pain : denies: Dysuria Skin: denies: Rash Musculoskeletal: reports: Extremity pain (Hip pain at the site of the surgical procedure). denies: Neck pain, Back pain Neurologic: denies: Confused, Head injury Immunocompromised: denies: Chemotherapy PD PAST MEDICAL HISTORY - Past Medical History Cardiovascular: High cholesterol, Coronary artery disease, [place] Respiratory: None Endocrine/Autoimmune: Other Psych: Depression, Anxiety, Post traumatic stress disorder, Other Musculoskeletal: Osteoarthritis, Fatigue, Chronic back pain, Other - Past Surgical History Past Surgical History: Yes Ortho: Spine surgery Cardiovascular: Cardiac catheterization, Angioplasty - Present Medications Home Medications: Ambulatory Orders Medication Instructions Recorded Confirmed Aspirin 81 mg PO DAILY 08/01/16 08/01/16 Atorvastatin Calcium 40 mg PO QPM 08/01/16 08/01/16 Fluoxetine HCl [Prozac] 20 mg PO DAILY 08/01/16 08/01/16 Fluticasone Propionate 2 spray DARCIE DAILY 08/01/16 08/01/16 Gabapentin 300 mg PO 0900,1600 08/01/16 08/01/16 Gabapentin 600 mg PO QPM 08/01/16 08/01/16 Hydrocodone/Acetaminophen 1 tab PO Q4H PRN 08/01/16 08/01/16 [Hydrocodone-APAP 10-325] Hydroxychloroquine [Plaquenil] 200 mg PO BID 08/01/16 08/01/16 Levothyroxine Sodium 125 mcg PO DAILY 08/01/16 08/01/16 [place] Carbonate 300 mg PO QPM 08/01/16 08/01/16 Losartan Potassium 12.5 mg PO DAILY 08/01/16 08/01/16 Metoprolol Tartrate 12.5 mg PO DAILY 08/01/16 08/01/16 [place] HCl 5 mg PO 5XD 08/01/16 08/01/16 Prazosin HCl 5 mg PO DAILY 08/01/16 08/01/16 Protriptyline HCl 5 mg PO BID 08/01/16 08/01/16 Topiramate [Topamax] 100 mg PO DAILY 08/01/16 08/01/16 Trazodone HCl 50 mg PO QPM 08/01/16 08/01/16 - Allergies Allergies/Adverse Reactions: Allergies Allergy/AdvReac Type Severity Reaction Status Date / Time bupropion HCl * Allergy Anaphylaxis Verified 08/01/16 13:51 [From Wellbutrin] - Social History Does the pt smoke?: No Smoking Status: Never smoker Does the pt drink ETOH?: No Does the pt have substance abuse?: No - Immunizations Immunizations are current?: Yes - POLST Patient has POLST: No PD ED PE NORMAL - General General: Alert and oriented X 3, No acute distress - HEENT HEENT: Atraumatic, PERRL, EOMI, Ears normal - Neck Neck: Supple, no meningeal sign - Cardiac Cardiac: RRR, Strong equal pulses - Respiratory Respiratory: No respiratory distress, Clear bilaterally - Abdomen Abdomen: Normal bowel sounds, Soft - Derm Derm: Normal color, Other (The surgical site is clean dry and intact, there is no evidence of erythema or underlying abscess) - Extremities Extremities: No deformity, No edema - Neuro Neuro: Alert and oriented X 3, senior ecologist 2-12 intact, No motor deficit, No sensory deficit, Normal speech PD ED PE EXPANDED - Eyes Eyes: PERRL, Normal accommodation, EOMI, Normal eyelids. No: Eyelid swelling, Eyelid erythema, Injected conj/sclera, Subconj hemorrhage, Anterior chambers clear, Temp arteries nontender Results - Vitals Vitals: Vital Signs - 24 hr 09/08/17 09/08/17 19:11 23:27 Temperature 36.6 C Heart Rate 63 54 L Respiratory 18 16 Rate Blood Pressure 109/41 L 117/65 O2 Saturation 100 98 Oxygen O2 Source Room air - EKG (time done) 20: 56 Rate: Rate (enter#) Rhythm: NSR Intervals: Normal [place], QRS normal QRS: Normal Ischemia: Normal ST segments - Labs Labs: Laboratory Tests 09/08/17 09/08/17 09/08/17 20:00 20:50 20:50 WBC 4.1 L RBC 2.85 L Hgb 8.0 L Hct 25.8 L MCV 90.6 MCH 28.0 MCHC 30.9 L RDW 16.1 H Plt Count 201 MPV 7.9 Neut # (Auto) 2.5 Lymph # (Auto) 1.0 L [place] # (Auto) 0.4 Eos # (Auto) 0.2 Baso # (Auto) 0.0 Absolute Nucleated RBC 0.00 Nucleated RBC % 0.1 Sodium 138 Potassium 3.9 Chloride 108 Carbon Dioxide 23 Anion Gap 7.0 BUN 15 Creatinine 1.1 H Estimated GFR (MDRD) 50 L Glucose 98 Calcium 8.5 Magnesium 1.8 Total Bilirubin 0.5 AST 17 ALT < 10 L Alkaline Phosphatase 63 Troponin I Total Protein 6.7 Albumin 3.3 Globulin 3.4 Albumin/Globulin Ratio 1.0 Lipase 24 Urine Color YELLOW Urine Clarity CLEAR Urine pH 5.5 Ur Specific [place] <=1.005 Urine Protein NEGATIVE Urine Glucose (UA) NEGATIVE Urine Ketones NEGATIVE Urine Occult Blood NEGATIVE Urine Nitrite NEGATIVE Urine Bilirubin NEGATIVE Urine Urobilinogen 0.2 (NORMAL) Ur Leukocyte Esterase NEGATIVE Ur Microscopic Review NOT INDICATED Urine Culture Comments NOT INDICATED Salicylates < 6.0 Urine Opiates Screen POSITIVE H Ur Oxycodone Screen NEGATIVE Urine Methadone Screen NEGATIVE Ur Propoxyphene Screen NEGATIVE Ur Barbiturates Screen NEGATIVE Ur Tricyclics Screen NEGATIVE Ur Phencyclidine Scrn NEGATIVE Ur Amphetamine Screen NEGATIVE U Methamphetamines Scrn NEGATIVE U Benzodiazepines Scrn NEGATIVE Urine Cocaine Screen NEGATIVE U Cannabinoids Screen NEGATIVE 09/08/17 20:50 WBC RBC Hgb Hct MCV MCH MCHC RDW Plt Count MPV Neut # (Auto) Lymph # (Auto) [place] # (Auto) Eos # (Auto) Baso # (Auto) Absolute Nucleated RBC Nucleated RBC % Sodium Potassium Chloride Carbon Dioxide Anion Gap BUN Creatinine Estimated GFR (MDRD) Glucose Calcium Magnesium Total Bilirubin AST ALT Alkaline Phosphatase Troponin I < 0.04 Total Protein Albumin Globulin Albumin/Globulin Ratio Lipase Urine Color Urine Clarity Urine pH Ur Specific [place] Urine Protein Urine Glucose (UA) Urine Ketones Urine Occult Blood Urine Nitrite Urine Bilirubin Urine Urobilinogen Ur Leukocyte Esterase Ur Microscopic Review Urine Culture Comments Salicylates Urine Opiates Screen Ur Oxycodone Screen Urine Methadone Screen Ur Propoxyphene Screen Ur Barbiturates Screen Ur Tricyclics Screen Ur Phencyclidine Scrn Ur Amphetamine Screen U Methamphetamines Scrn U Benzodiazepines Scrn Urine Cocaine Screen U Cannabinoids Screen - Rads (name of study) CT head Radiology: Final report received (No acute abnormality) PD MEDICAL DECISION MAKING - ED course Complexity details: other (The patient's workup does not reveal any significant abnormality that would necessitate admission to the hospital. The patient on reevaluation is resting comfortably and her symptoms have improved. The patient is scheduled to see ophthalmology tomorrow for further workup of her vision related symptoms. The patient has already been seen by ophthalmology and had a exam under dilation. According to the patient there is no evidence of hemorrhage, pressure issue or retinal issue. The patient's pain is under control related to her hip replacement. The patient appears appropriate for discharge. I discussed warning signs and recommended returning to the emergency department immediately for worsening or any concerns) - Sepsis Event Vital Signs: Vital Signs - 24 hr 09/08/17 09/08/17 19:11 23:27 Temperature 36.6 C Heart Rate 63 54 L Respiratory 18 16 Rate Blood Pressure 109/41 L 117/65 O2 Saturation 100 98 Oxygen O2 Source Room air Departure - Departure Disposition: 01 Home, Self Care Clinical Impression: Weakness, Blurred vision, bilateral Anemia Qualifiers: Anemia type: unspecified type Qualified Code(s): D64.9 - Anemia, unspecified Condition: Good Follow-Up: Kelley,Augie E, MD [Primary Care Provider] - Within 3 Days Comments: Please follow-up with your digital research analyst as scheduled tomorrow. Please return to the emergency department immediately for any worsening or concerns Discharge Date/Time: 09/08/17 23:28
[2017-09-08 23:28] VITALS: BP 117/65
== END 2017-09-08 23:28 | disposition home or self-care (01) ==
LOC: ED 19:04
DX: R53.1 Weakness (principal); H53.8 Other visual disturbances; D64.9 Anemia, unspecified; Z96.641 Presence of right artificial hip joint
CPT/HCPCS: 36415; 70450; 71046; 80053; 80306; 80329; 81003; 83690; 83735; 84484; 85025; 93005; 96361; 96374; 99283; 99284; J2060; 81001; 87086

== ENCOUNTER 2017-09-29 21:09 | Outpatient (CLI) | payer BC ==
--- NOTE | 2017-09-30 05:04 | Ultrasound Report ---
Procedure Date: 09/29/2017 Accession Number: [id number] / [id number] Procedure: US - Carotid Doppler Complete CPT Code: FULL RESULT: EXAM: BILATERAL CAROTID AND VERTEBRAL ARTERY DUPLEX DOPPLER ULTRASOUND: EXAM DATE: 09/29/2017 09:52 PM CLINICAL HISTORY: Bilateral ischemic optic neuropathy. COMPARISON: CAROTID DOPPLER COMPLETE 05/12/2015. TECHNIQUE: Grayscale imaging, color Doppler, and duplex spectral Doppler were used to evaluate the carotid and vertebral arteries bilaterally. Static images were obtained. FINDINGS: Calcified plaque is seen in the carotid bifurcations and internal carotid arteries bilaterally. Tortuosity is noted, left worse than right. Mildly elevated velocities are seen in the mid left internal carotid artery which could represent 50-69% stenosis. Normal antegrade flow is present in bilateral vertebral arteries. VELOCITIES (cm/sec): Right: RCCA Prox: PSV 106.6 cm/sec. RCCA Dist: PSV 74.9 cm/sec, EDV 20.8 cm/sec. RECA: PSV 68 cm/sec. R Bulb: PSV 62.6 cm/sec, EDV 10.1 cm/sec, ICA/CCA ratio 0.8. RAFAEL Prox: PSV 71.1 cm/sec, EDV 27.8 cm/sec, ICA/CCA ratio 0.9. RAFAEL Mid: PSV 107.4 cm/sec, EDV 39.7 cm/sec, ICA/CCA ratio 1.4. RAFAEL Dist: PSV 110.1 cm/sec, EDV 36.1 cm/sec, ICA/CCA ratio 1.5. RVA: PSV 74 cm/sec. RVA flow direction: Antegrade. Left: LCCA Prox: PSV 70.3 cm/sec. LCCA Dist: PSV 65.9 cm/sec, EDV 17.1 cm/sec. LECA: PSV 80.0 cm/sec. L Bulb: PSV 49.1 cm/sec, EDV 15.1 cm/sec, ICA/CCA ratio 0.7. LICA Prox: PSV 102.9 cm/sec, EDV 4.2 cm/sec, ICA/CCA ratio 1.5. LICA Mid: PSV 138.0 cm/sec, EDV 39.7 cm/sec, ICA/CCA ratio 2.1. LICA Dist: PSV 81.7 cm/sec, EDV 42.7 cm/sec, ICA/CCA ratio 1.2. LVA: PSV 47.3 cm/sec. LVA flow direction: Antegrade. IMPRESSION: 1. Calcified bilateral carotid artery plaquing. 2. In the right carotid artery there are no elevated carotid artery velocities to suggest hemodynamically significant stenosis. 3. In the mid left carotid artery there is mildly elevated velocity and systolic velocity ratio suggesting 50-69% stenosis. 4. Normal antegrade flow is present in bilateral vertebral arteries. General Recommendations: Stenosis =50% ICA - Follow-up ultrasound 6-12 months Stenosis <50% ICA - High Risk Patient with plaque - Follow-up ultrasound 1-2 years Normal Study but High Risk Patient - Follow-up ultrasound 3-5 years Management recommendations and diagnostic criteria are based on current IAC endorsed standards in Carotid Artery Stenosis: Grayscale and Doppler Ultrasound Diagnosis. Validated velocity measurements with angiographic measurements and velocity criteria are extrapolated from diameter data as defined by the Society of Radiologists in Ultrasound Consensus Conference Radiology 2003; 229;340-346. RADIA
== END 2017-09-29 21:10 | disposition home or self-care (01) ==
LOC: DI 21:09
PROVIDERS: ATTEND Internal Medicine
DX: H47.013 Ischemic optic neuropathy, bilateral (principal); I65.23 Occlusion and stenosis of bilateral carotid arteries
CPT/HCPCS: 93880

== ENCOUNTER 2017-10-03 10:51 | Outpatient (CLI) | payer BC ==
[2017-10-03] MEDS ORDERED: GADOBUTROL 10 MMOL/10 ML VIAL ONE (11:07)
--- NOTE | 2017-10-03 15:16 | MRI Report ---
Procedure Date: 10/03/2017 Accession Number: [id number] / [id number] Procedure: MRI - Brain W/WO CPT Code: FULL RESULT: EXAM: MRI BRAIN WITHOUT AND WITH CONTRAST EXAM DATE: 10/03/2017 11:54 AM. CLINICAL HISTORY: Unspecified visual field defects,homonymous,bilateral. COMPARISON: Head without 09/08/2017. TECHNIQUE: Multiplanar, multisequence T1-weighted and fluid-sensitive MR sequences of the brain were performed. Sequences optimized for routine evaluation. Other: None. IV Contrast: . FINDINGS: Brain Volume: Normal for age. Parenchyma: Signal abnormality consistent with acute infarct is seen in right ELEMENTARY SCHOOL REGISTRAR territory. This involves the posterior thalamus, posterior aspect of the parahippocampal gyrus, and calcar buffy region. Decreased T1 with increased T2 and FLAIR signal is seen along with restricted diffusion. An adjacent ill-defined branching linear enhancing structure is seen extending to the calcarine sulcus suggesting slow flow within adjacent veins. Separate punctate cortical-based focus of signal abnormality is seen deep within the high right central sulcus as well. This demonstrates decreased T1 with increased T2 and FLAIR signal. Increased diffusion signal is noted without ADC map signal abnormality. This could represent subacute infarct with normalization of ADC map signal versus punctate focus of old ischemia with diffusion bright T2 shine-through. Otherwise a few scattered punctate foci of increased diffusion and T2 signal are seen in the centrum semiovale bilaterally. No intracranial mass or hemorrhage. No abnormal parenchymal enhancement. Ventricles/Cisterns: No hydrocephalus. No abnormal extra-axial fluid collection or hemorrhage. Orbits: Symmetric and unremarkable. [place]: The pituitary gland, cavernous sinuses, suprasellar cistern and optic chiasm are unremarkable. IAC: Symmetric and unremarkable. Vasculature: Normal signal flow void is seen in the major arterial structures at the skull base. The dural sinuses are patent and enhance normally. Sinuses: No acute sinus disease. Mild dependent mucosal thickening is seen in the left sphenoid sinus. Bones: No focal pathologic appearing marrow signal changes. Other: None. IMPRESSION: 1. Acute infarct in right ELEMENTARY SCHOOL REGISTRAR territory. This involves the posterior right thalamus, posterior parahippocampal gyrus, and adjacent calcar buffy. No hemorrhage. 2. Focal cortical-based signal abnormality in the high right central sulcus. This could represent subacute infarct versus old infarct with diffusion bright T2 shine-through. 3. No intracranial mass or hemorrhage. Critical result: We are paging the referring physician to be made aware of these findings. Findings are discussed with on-call physician on 10/03/2017 at 1536 hrs. RADIA
== END 2017-10-03 10:52 | disposition home or self-care (01) ==
LOC: DI 10:51
PROVIDERS: ATTEND Ophthalmology
DX: H53.40 Unspecified visual field defects (principal); H53.462 Homonymous bilateral field defects, left side; I63.9 Cerebral infarction, unspecified
CPT/HCPCS: 70553; A9585

== ENCOUNTER 2017-10-05 16:06 | Emergency (ER) | payer BC ==
[2017-10-05 16:46] LABS: BASOPHILS % (AUTO) 0.9 %; EOSINOPHILS # (AUTO) 0.1 10^3/uL (0.0-0.7); EOSINOPHILS % (AUTO) 2.2 %; HGB - HEMOGLOBIN 10.2 g/dL (12.0-16.0); LYMPHOCYTES # (AUTO) 0.8 10^3/uL (1.5-3.5); LYMPHOCYTES % (AUTO) 20.2 %; MEAN CORPUSCULAR HEMOGLOBIN 27.2 pg (27.0-31.0); MEAN CORPUSCULAR HGB CONC 32.1 g/dL (32.0-36.0); MEAN CORPUSCULAR VOLUME 84.9 fL (81.0-99.0); MEAN PLATELET VOLUME 8.4 fL (7.9-10.8); MONOCYTES # (AUTO) 0.2 10^3/uL (0.0-1.0); MONOCYTES % (AUTO) 6.3 %; NEUTROPHILS # (AUTO) 2.8 10^3/uL (1.5-6.6); NEUTROPHILS % (AUTO) 70.4 %; PLT - PLATELET COUNT 204 10^3/uL (130-450); RED BLOOD COUNT 3.75 10^6/uL (4.20-5.40); RED CELL DISTRIBUTION WIDTH 16.3 % (12.0-15.0); WHITE BLOOD COUNT 3.9 x10^3/uL (4.8-10.8)
[2017-10-05 16:52] LABS: ALBUMIN 3.7 g/dL (3.2-5.5); ALBUMIN/GLOBULIN RATIO 1.1 (1.0-2.2); BILIRUBIN,TOTAL 0.7 mg/dL (0.2-1.0); CALCIUM 8.8 mg/dL (8.5-10.3); CREATININE 1.1 mg/dL (0.4-1.0); TOTAL PROTEIN 7.2 g/dL (6.7-8.2)
[2017-10-05] MEDS ORDERED: METOCLOPRAMIDE 10 MG TABLET PO STA (16:58)
--- NOTE | 2017-10-05 17:01 | ED Physician Documentation ---
PD HPI FOCAL NEURO - Stated complaint Stated Complaint: SENT BY DOC - Chief complaint Chief Complaint: Neuro - History obtained from History obtained from: Patient - History of Present Illness Timing - onset: Other (62-year-old woman with history of coronary disease and stenting, hypercholesterolemia. She is on both aspirin and Plavix. Around September 05 she started to notice problems with her vision, especially the left peripheral vision and some difficulties with balance and vertigo and headaches on the right side. She has a history of migraines. She was evaluated by an party director and sent for an MRI 2 days ago which demonstrated An acute right CYANIDE CASE HARDENER infarct. She also had carotid Dopplers showing plaquing and recommending a repeat ultrasound in 6 months.) Review of Systems Constitutional: denies: Fever, Chills Eyes: denies: Loss of vision, Decreased vision, Photophobia Ears: denies: Loss of hearing, Ear pain Nose: denies: Rhinorrhea / runny nose, Congestion Throat: denies: Sore throat Cardiac: denies: Chest pain / pressure, Palpitations PD PAST MEDICAL HISTORY - Past Medical History Cardiovascular: High cholesterol, Coronary artery disease, [place] Respiratory: None Endocrine/Autoimmune: Other Psych: Depression, Anxiety, Post traumatic stress disorder, Other Musculoskeletal: Osteoarthritis, Fatigue, Chronic back pain, Other - Past Surgical History Past Surgical History: Yes Ortho: Spine surgery Cardiovascular: Cardiac catheterization, Angioplasty - Present Medications Home Medications: Ambulatory Orders Medication Instructions Recorded Confirmed Aspirin 81 mg PO DAILY 08/01/16 08/01/16 Atorvastatin Calcium 40 mg PO QPM 08/01/16 08/01/16 Fluoxetine HCl [Prozac] 20 mg PO DAILY 08/01/16 08/01/16 Fluticasone Propionate 2 spray DARCIE DAILY 08/01/16 08/01/16 Gabapentin 300 mg PO 0900,1600 08/01/16 08/01/16 Gabapentin 600 mg PO QPM 08/01/16 08/01/16 Hydrocodone/Acetaminophen 1 tab PO Q4H PRN 08/01/16 08/01/16 [Hydrocodone-APAP 10-325] Hydroxychloroquine [Plaquenil] 200 mg PO BID 08/01/16 08/01/16 Levothyroxine Sodium 125 mcg PO DAILY 08/01/16 08/01/16 [place] Carbonate 300 mg PO QPM 08/01/16 08/01/16 Losartan Potassium 12.5 mg PO DAILY 08/01/16 08/01/16 Metoprolol Tartrate 12.5 mg PO DAILY 08/01/16 08/01/16 [place] HCl 5 mg PO 5XD 08/01/16 08/01/16 Prazosin HCl 5 mg PO DAILY 08/01/16 08/01/16 Topiramate [Topamax] 100 mg PO DAILY 08/01/16 08/01/16 Trazodone HCl 50 mg PO QPM 08/01/16 08/01/16 Butalb/Acetaminophen/Caffeine 1 each PO Q4H PRN #20 capsule 10/05/17 [Fioricet 50-300-40 mg Capsule] Metoclopramide [Reglan] 10 mg PO Q6H PRN #20 tablet 10/05/17 - Allergies Allergies/Adverse Reactions: Allergies Allergy/AdvReac Type Severity Reaction Status Date / Time bupropion HCl * Allergy Anaphylaxis Verified 10/05/17 16:17 [From Wellbutrin] - Social History Does the pt smoke?: No Smoking Status: Never smoker Does the pt drink ETOH?: No Does the pt have substance abuse?: No - Immunizations Immunizations are current?: Yes - POLST Patient has POLST: No PD ED PE NORMAL - Vitals Vital signs reviewed: Yes - General General: Alert and oriented X 3, No acute distress - HEENT HEENT: PERRL, EOMI - Neck Neck: Supple, no meningeal sign, No bony TTP - Cardiac Cardiac: RRR, No murmur - Respiratory Respiratory: No respiratory distress, Clear bilaterally - Abdomen Abdomen: Non tender - Neuro Neuro: Alert and oriented X 3 Eye Opening: Spontaneous Motor: Obeys Commands Verbal: Oriented GCS Score: 15 NIHSS - Time Time: 16:50 - Level of Consciousness Level of consciousness: (0) Alert, Keenly responsive LOC Questions: (0) Answers both Q's correct - Gaze Best Gaze: (0) Normal - Visual Visual: (0) No loss - Facial Palsy Facial Palsy: (0) Normal, symmetrical movement - Motor Arms (both separate) Motor Arm (right): (0) No drift Motor Arm (left): (0) No drift - Motor Legs (both separate) Motor Leg (right): (0) No drift Motor Leg (left): (0) No drift - Limb Ataxia Limb Ataxia: (1) Present in 1 limb (LUE) - Sensory Sensory: (0) Normal - Best Language Best Language: (0) No aphasia - Dysarthria Dysarthria: (0) Normal - Extinction and Inattention (formally neg Extinction and inattention: (0) No abnormality Results - Vitals Vitals: Vital Signs - 24 hr 10/05/17 10/05/17 16:15 18:00 Temperature 36.5 C Heart Rate 58 L 88 Respiratory 20 18 Rate Blood Pressure 113/64 120/72 O2 Saturation 98 99 Oxygen O2 Source Room air - EKG (time done) 1627 Rate: Rate (enter#) (53) Rhythm: NSR [place]: Normal Intervals: Normal [place] QRS: Low voltage Ischemia: Normal ST segments Computer interpretation: Agree with computer - Labs Labs: Laboratory Tests 10/05/17 10/05/17 10/05/17 16:35 16:35 16:59 WBC 3.9 L RBC 3.75 L Hgb 10.2 L Hct 31.8 L MCV 84.9 MCH 27.2 MCHC 32.1 RDW 16.3 H Plt Count 204 MPV 8.4 Neut # (Auto) 2.8 Lymph # (Auto) 0.8 L [place] # (Auto) 0.2 Eos # (Auto) 0.1 Baso # (Auto) 0.0 Absolute Nucleated RBC 0.00 Nucleated RBC % 0.1 PT 11.7 INR 1.0 Sodium 135 Potassium 3.9 Chloride 108 Carbon Dioxide 22 Anion Gap 5.0 L BUN 19 Creatinine 1.1 H Estimated GFR (MDRD) 50 L Glucose 101 H Calcium 8.8 Total Bilirubin 0.7 AST 18 ALT 11 Alkaline Phosphatase 65 Total Protein 7.2 Albumin 3.7 Globulin 3.5 Albumin/Globulin Ratio 1.1 Lipase 27 Last Dose Date Last Dose Time [place] 10/05/17 16:59 WBC RBC Hgb Hct MCV MCH MCHC RDW Plt Count MPV Neut # (Auto) Lymph # (Auto) [place] # (Auto) Eos # (Auto) Baso # (Auto) Absolute Nucleated RBC Nucleated RBC % PT INR Sodium Potassium Chloride Carbon Dioxide Anion Gap BUN Creatinine Estimated GFR (MDRD) Glucose Calcium Total Bilirubin AST ALT Alkaline Phosphatase Total Protein Albumin Globulin Albumin/Globulin Ratio Lipase Last Dose Date UNKNOWN Last Dose Time UNKNOWN [place] 0.35 PD MEDICAL DECISION MAKING - ED course ED course: She was advised to come here by her party director who ordered the MRI. That said no emergency medical condition is identified, the stroke was about 4 weeks ago and she is on pretty much maximal medical therapy for stroke prevention. She has an appointment with her physician tomorrow. - Consults Consults: Discussed case with (her PMD, Augie Kelley, has appt tomorrow.) - Sepsis Event Vital Signs: Vital Signs - 24 hr 10/05/17 10/05/17 16:15 18:00 Temperature 36.5 C Heart Rate 58 L 88 Respiratory 20 18 Rate Blood Pressure 113/64 120/72 O2 Saturation 98 99 Oxygen O2 Source Room air Departure - Departure Disposition: 01 Home, Self Care Clinical Impression: Cerebrovascular accident (CVA) Qualifiers: CVA mechanism: embolism Precerebral and cerebral artery: posterior cerebral artery Laterality of affected vessel: right Qualified Code(s): I63.431 - Cerebral infarction due to embolism of right posterior cerebral artery Condition: Good Record reviewed to determine appropriate education?: Yes Instructions: ED Headache Migraine Prescriptions: Butalb/Acetaminophen/Caffeine [Fioricet 50-300-40 mg Capsule] 1 each PO Q4H PRN #20 capsule PRN Reason: Headache Metoclopramide [Reglan] 10 mg PO Q6H PRN #20 tablet PRN Reason: Migraine Comments: Continue all your current medications and follow up with Dr. Kelley tomorrow as scheduled. You can try the prescriptions attached for your migraines. Discharge Date/Time: 10/05/17 18:00
[2017-10-05 17:11] LABS: PT - PROTHROMBIN TIME 11.7 secs (9.9-12.6)
[2017-10-05 17:40] LABS: LITHIUM 0.35 mmol/L
[2017-10-05 18:00] VITALS: BP 120/72
== END 2017-10-05 18:00 | disposition home or self-care (01) ==
LOC: ED 16:06
DX: I63.431 Cerebral infarction due to embolism of right posterior cerebral artery (principal)
CPT/HCPCS: 36415; 80053; 80178; 83690; 85025; 85610; 93005; 99282; 99283; A9270

== ENCOUNTER 2018-05-17 11:02 | Outpatient (CLI) | payer MEDICARE | END 2018-05-17 11:03 | disposition home or self-care (01) | LOC: SC 11:02 | PROVIDERS: ATTEND Internal Medicine Pulmonary Disease | DX: G47.33 Obstructive sleep apnea (adult) (pediatric) (principal); E66.9 Obesity, unspecified; Z68.39 Body mass index [BMI] 39.0-39.9, adult | CPT/HCPCS: 99203; G0463; 99212 ==

== ENCOUNTER 2018-06-02 21:29 | Outpatient (CLI) | payer MEDICARE | END 2018-06-02 21:30 | disposition home or self-care (01) | LOC: SC 21:29 | PROVIDERS: ATTEND Internal Medicine Pulmonary Disease | DX: G47.33 Obstructive sleep apnea (adult) (pediatric) (principal) | CPT/HCPCS: 95810 ==

== ENCOUNTER 2018-06-10 12:03 | Outpatient (CLI) | payer MEDICARE | END 2018-06-10 12:04 | disposition home or self-care (01) | LOC: LAB 12:03 | PROVIDERS: ATTEND Internal Medicine | DX: R53.83 Other fatigue (principal) | CPT/HCPCS: 36415; 84443 ==

== ENCOUNTER 2018-06-15 09:01 | Outpatient (CLI) | payer MEDICARE ==
--- NOTE | 2018-06-15 13:59 | DEXA Report ---
Reason: MENOPAUSAL AND PERIMENOPAUSAL DISORDERS Procedure Date: 06/15/2018 Accession Number: [id number] / [id number] Procedure: DEX - Dexa Spine and/or Hip CPT Code: FULL RESULT: EXAM: Dexa Spine and/or Hip, Dexa Forearm DATE: 06/15/2018 9:55 AM CLINICAL HISTORY: MENOPAUSAL AND PERIMENOPAUSAL DISORDERS TECHNIQUE: Dual energy x-ray absorptiometry (DXA) was performed on a [employer] System. Regions measured are the femoral neck and forearm. COMPARISON: None. In accordance with the International Society for Clinical Densitometry (ISCD) guidelines, data from previous exams may be reanalyzed using current recommendations and techniques. This is done to allow a more accurate basis for comparison with the current study. FINDINGS: The data for the hip is as follows: BMD (g/cm/cm) T-SCORE Z-SCORE REGION Neck 0.833 -1.5 -0.6 TOTAL 0.947 -0.5 0.0 NOTE: The femoral neck or total proximal femur, whichever is lowest, is used for classification. The data for the left forearm is as follows: BMD (g/cm/cm) T-SCORE Z-SCORE REGION 1/3 0.866 -0.1 1.3 NOTE: The 33% radius of the nondominant forearm is used for classification. DXA RESULTS SUMMARY: Forearm IMPRESSION: THE WHO CLASSIFICATION BASED ON THE INTERNATIONAL REFERENCE STANDARD IS OSTEOPENIA. THE FRACTURE RISK IS INCREASED. RECOMMENDATION: Patients with diagnosis of osteoporosis or osteopenia should have regular bone mineral density assessment. For those eligible for Medicare, routine testing is allowed once every 2 years. Testing frequency can be increased for patients who have rapidly progressing disease or for those who are receiving medical therapy to restore bone mass. COMMENT: World Health Organization (WHO) definitions for osteoporosis and osteopenia: NORMAL BMD: T-score at -1.0 or higher, fracture risk is low OSTEOPENIA BMD: T-score between -1.0 and -2.5, fracture risk is increased. OSTEOPOROSIS BMD: T-score at -2.5 or lower, fracture risk is high. National Osteoporosis Foundation recommends: 1. Obtain adequate dietary calcium (at least 1200 mg per day) and vitamin D (400-800 international units per day). 2. Participate, as appropriate, in regular weightbearing and muscle-strengthening exercise. 3. Avoid tobacco use and reduce alcohol and caffeine intake. 4. For more detailed information see the website at www.NOF.org.
== END 2018-06-15 09:02 | disposition home or self-care (01) ==
LOC: DI 09:01
PROVIDERS: ATTEND Internal Medicine
DX: Z13.820 Encounter for screening for osteoporosis (principal); M85.88 Other specified disorders of bone density and structure, other site; N95.8 Other specified menopausal and perimenopausal disorders
CPT/HCPCS: 77080; 77081

== ENCOUNTER 2018-06-23 16:04 | Outpatient (CLI) | payer MEDICARE ==
--- NOTE | 2018-06-24 08:28 | Mammography Report ---
Reason: SCREENING MAMMAO Procedure Date: 06/23/2018 Accession Number: [id number] / [id number] Procedure: NANETTE - Screening Mammo w/Vadim CPT Code: FULL RESULT: EXAM: Screening Mammo w/Vadim DATE: 06/23/2018 4:55 PM CLINICAL HISTORY: Screening exam. No reported risk factors. TECHNIQUE: (B) - Bilateral CC and MLO views were obtained. COMPARISON: 11/27/2016 through 07/31/2010. PARENCHYMAL PATTERN: (A) - The breast(s) demonstrate(s) scattered fibroglandular densities. FINDINGS: There are coarse typically benign calcifications. There are no suspicious masses, calcifications, or areas of distortion. IMPRESSION: Negative examination. BI-RADS category 1. RECOMMENDATION: (ANNUAL) - Recommend routine annual screening mammography. BI-RADS CATEGORY: (1) - Negative. STANDARD QUALIFYING STATEMENTS: 1. This examination was not reviewed with the aid of Computer-Aided Detection (CAD). 2. A negative or benign imaging report should not preclude biopsy if clinically suspicious findings are present. 3. Dense breasts may obscure an underlying neoplasm. 4. This examination was reviewed with the aid of 3D breast imaging (tomosynthesis).
== END 2018-06-23 16:05 | disposition home or self-care (01) ==
LOC: DI 16:04
PROVIDERS: ATTEND Internal Medicine
DX: Z12.31 Encounter for screening mammogram for malignant neoplasm of breast (principal)
CPT/HCPCS: 77063; 77067

== ENCOUNTER 2018-06-28 09:47 | Outpatient (CLI) | payer MEDICARE | END 2018-06-28 09:48 | disposition home or self-care (01) | LOC: SC 09:47 | PROVIDERS: ATTEND Internal Medicine Pulmonary Disease | DX: G47.33 Obstructive sleep apnea (adult) (pediatric) (principal) | CPT/HCPCS: 99213; G0463; 99212 ==

== ENCOUNTER 2018-07-13 08:00 | Outpatient (CLI) | payer MEDICARE ==
[2018-07-13 13:37] LABS: EOSINOPHILS # (AUTO) 0.2 10^3/uL (0.0-0.7); EOSINOPHILS % (AUTO) 5.3 %; HGB - HEMOGLOBIN 11.8 g/dL (12.0-16.0); LYMPHOCYTES # (AUTO) 0.8 10^3/uL (1.5-3.5); LYMPHOCYTES % (AUTO) 24.4 %; MEAN CORPUSCULAR HEMOGLOBIN 29.3 pg (27.0-31.0); MEAN CORPUSCULAR VOLUME 91.4 fL (81.0-99.0); MEAN PLATELET VOLUME 8.8 fL (7.9-10.8); MONOCYTES # (AUTO) 0.4 10^3/uL (0.0-1.0); MONOCYTES % (AUTO) 11.8 %; NEUTROPHILS # (AUTO) 1.8 10^3/uL (1.5-6.6); NEUTROPHILS % (AUTO) 57.5 %; PLT - PLATELET COUNT 209 10^3/uL (130-450); RED BLOOD COUNT 4.03 10^6/uL (4.20-5.40); WHITE BLOOD COUNT 3.2 x10^3/uL (4.8-10.8)
[2018-07-13 13:55] LABS: ALBUMIN 3.9 g/dL (3.2-5.5); ALBUMIN/GLOBULIN RATIO 1.3 (1.0-2.2); ALKALINE PHOSPHATASE 63 IU/L (42-121); ALT ALANINE AMINOTRANSFERASE 14 IU/L (10-60); AST ASPARTATE AMINOTRANSFERASE 20 IU/L (10-42); BILIRUBIN,TOTAL 0.5 mg/dL (0.2-1.0); BUN - BLOOD UREA NITROGEN 14 mg/dL (6-20); CARBON DIOXIDE - CO2 24 mmol/L (21-32); CHLORIDE 105 mmol/L (101-111); CHOL/HDL RATIO 2.3 (<4.4); CHOLESTEROL 107 mg/dL; GFR - MDRD 56 (>89); GLUCOSE 106 mg/dL (70-100); HDL CHOLESTEROL 46 mg/dL; LDL CHOLESTEROL,CALCULATED 41 mg/dL; LDL/HDL RATIO 0.9 (<4.4); SODIUM 138 mmol/L (135-145); TOTAL PROTEIN 6.8 g/dL (6.7-8.2); VLDL CHOLESTEROL 20 mg/dL
[2018-07-13 14:09] LABS: LITHIUM 0.41 mmol/L
== END 2018-07-13 23:59 | disposition home or self-care (01) ==
LOC: LAB 08:00
PROVIDERS: ATTEND Internal Medicine
DX: R53.81 Other malaise (principal)
CPT/HCPCS: 36415; 80053; 80061; 80178; 83721; 84443; 85025

== ENCOUNTER 2018-07-20 19:27 | Outpatient (CLI) | payer MEDICARE | END 2018-07-20 19:28 | disposition home or self-care (01) | LOC: SC 19:27 | PROVIDERS: ATTEND Internal Medicine Pulmonary Disease | DX: G47.33 Obstructive sleep apnea (adult) (pediatric) (principal); G47.61 Periodic limb movement disorder; E66.9 Obesity, unspecified; Z68.43 Body mass index [BMI] 50.0-59.9, adult | CPT/HCPCS: 95811 ==

== ENCOUNTER 2018-09-13 11:30 | Outpatient (CLI) | payer MEDICARE ==
--- NOTE | 2018-09-13 12:13 | CONSULTATION NOTE ---
Information from patient questionnaire entered by Britany Ba. I have reviewed and concur with the information entered by Britany Ba. This document represents the service I personally performed and the decisions made by me, Елена Rendon MD, [facility]. - History of Present Illness HPI: Ms. Aguayo returns for follow up of the sleep study (a manual CPAP titration study) she had on 07/20/2018. The polysomnography showed that CPAP was initiated at 4 cmH2O and titrated up to CPAP at 15 cmH2O. CPAP at 15 cmH2O appeared to be optimal (AHI of 0 per hour on the pressure). There was supine sleep on the pressure. Oxygen saturation was minimally low. Lower CPAP settings allowed frequent residual respiratory events. The patient appeared to have tolerated positive airway pressure therapy fairly well. The patients sleep efficiency was reduced due mainly to sleep onset insomnia. The sleep architecture was abnormal for sleep fragmentation and reduced amount of time spent in REM sleep. There was mild periodic limb movement of sleep. Cardiac rhythm was normal sinus rhythm without significant arrhythmia. No abnormal be havior (parasomnia) observed during the night. The patient was informed of these findings. I explained to her that CPAP appears to be effective at 15 cmH2O. She used a CPAP briefly about a decade ago in [place]. Initial [place] Sleepiness Scale score: 10 Current [place] Sleepiness Scale score: 8 - Allergies/Medications Allergies and home medications reviewed: Yes - Review of Systems Review of systems same as previous: Yes - Impression 1. Obstructive Sleep Apnea-Hypopnea Syndrome, moderate, adequately controlled with CPAP of 15 cmH2O. She has not started back on the treatment yet. Based on the titration study, I will prescribe her with an autoCPAP set between 10 and 15 cmH2O. 2. Periodic leg movement of sleep, mild, with occasional restless leg symptoms. She said Prozac was recently switched to Cymbalta and she just started taking gabapentin again. Most likely the combination will improve the restless leg syndrome/periodic leg movement of sleep. Iron deficiency should be ruled out. - Plan 1. Prescription made for an autoCPAP, heated humidifier, and related supplies. 2. Attempt to lose weight. 3. Return for follow up after one month on the new machine.
== END 2018-09-13 11:31 | disposition home or self-care (01) ==
LOC: SC 11:30
PROVIDERS: ATTEND Internal Medicine Pulmonary Disease
DX: G47.33 Obstructive sleep apnea (adult) (pediatric) (principal); G47.61 Periodic limb movement disorder
CPT/HCPCS: 99213; G0463; 99212

== ENCOUNTER 2018-12-28 10:16 | Outpatient (CLI) | payer MEDICARE ==
--- NOTE | 2018-12-28 12:52 | SLEEP CARE CONSULTATION ---
Information from patient questionnaire entered by Isela Hanks. I have reviewed and concur with the information entered by Isela Hanks. This document represents the service I personally performed and the decisions made by me, Елена Rendon MD, [facility]. History of Present Illness Previous diagnosis: Moderate, Obstructive Sleep Apnea-Hypopnea Syndrome AHI: 16.1 Reason for CPAP/BiPAP follow up: first compliance Equipment type: CPAP Equipment obtained from: [employer] Mask style: Nasal pillows Prior sleep studies: Yes HPI additional information: HPI: Ms. Aguayo returned today for annual follow up of nasal CPAP therapy. She was diagnosed to have moderate obstructive sleep apnea-hypopnea syndrome. The patient gets her supplies from [employer]. She wears a nasal mask. She hardly uses the CPAP. She says that she has so many other medical problems that make CPAP therapy very uncomfortable. She has intractable migraines headache that is aggravated by the headgear. She also has post-traumatic stress disorder. CPAP Compliance Data - Data Reviewed with Patient Average duration of nightly device use: 1H 51M Compliance rate %: 3.3 Current pressure setting (cmH2O): 10-15 Humidity settin Heated hose settin Subjective Patient concerns: reports: mask discomfort (numbness/pain), air blowing in eyes, dry mouth, nose, throat, epistaxis, other (headache, anxiety, nightmares, nausea) Initial [place] Sleepiness Scale score: 10 Current [place] Sleepiness Scale score: 9 Allergies and Home Medications Drug allergies reviewed: Yes Home medication list reviewed: Yes Review of Systems Review of systems same as previous: Yes Physical Exam Weight: 202 lb Weight change since last visit: -9 Impression and Plan IMPRESSION: 1. Obstructive Sleep Apnea-Hypopnea Syndrome, moderate, with the patient not using her CPAP due to several other medical conditions. She does not wish to try using more now either. She would like to retry in the future. She has lost about 10 lbs. At this point, she will have to return the CPAP because it has been 3 months. PLAN: 1. Discontinue CPAP therapy for now. 2. Try to lose more weight 3. Return in one year for follow up with the plan to restart treatment at that time. I spent 100% of this 20 minute visit face to face with the patient with greater than 50% of this was spent time counseling the patient and coordination of care.
== END 2018-12-28 10:17 | disposition home or self-care (01) ==
LOC: SC 10:16
PROVIDERS: ATTEND Internal Medicine Pulmonary Disease
DX: G47.33 Obstructive sleep apnea (adult) (pediatric) (principal)
CPT/HCPCS: 99213; G0463; 99212

== ENCOUNTER 2018-12-29 11:11 | Outpatient (CLI) | payer MEDICARE ==
[2018-12-29 12:20] LABS: LITHIUM 0.49 mmol/L
== END 2018-12-29 11:12 | disposition home or self-care (01) ==
LOC: LAB 11:11
PROVIDERS: ATTEND Psychiatry & Neurology Psychiatry
DX: F33.1 Major depressive disorder, recurrent, moderate (principal); F43.10 Post-traumatic stress disorder, unspecified; F90.9 Attention-deficit hyperactivity disorder, unspecified type; G47.00 Insomnia, unspecified
CPT/HCPCS: 36415; 80178

== ENCOUNTER 2019-06-17 11:26 | Outpatient (CLI) | payer MEDICARE | END 2019-06-17 11:27 | disposition home or self-care (01) | LOC: LAB 11:26 | PROVIDERS: ATTEND Hospitalist | DX: R00.1 Bradycardia, unspecified (principal) | CPT/HCPCS: 36415; 84443 ==

== ENCOUNTER 2019-06-20 11:46 | Outpatient (CLI) | payer MEDICARE ==
--- NOTE | 2019-06-20 21:05 | XRAY Report ---
Reason: PAIN IN BOTH CS TS FOLLOWING RECENT FALL Procedure Date: 06/20/2019 Accession Number: [id number] / [id number] Procedure: XR - Cervical Spine 2 View CPT Code: Final Report FULL RESULT: EXAM: CERVICAL SPINE RADIOGRAPHY EXAM DATE: 06/20/2019 12:17 PM. CLINICAL HISTORY: Pain post injury after a recent fall. Pain reportedly in the upper back, neck and both shoulders. COMPARISONS: None. TECHNIQUE: 3 views. FINDINGS: Alignment: Broad based levoconvex asymmetric curvature of the upper spinal column by about 7 degrees across the region of the cervicothoracic junction. Lower cervical spine lordosis straightening. Possible minimal degenerative anterolisthesis of C4 on C5. Bones: The cervical vertebral bodies and posterior elements are well visualized from the skull base through C7-T1. No radiographic evidence of acute fracture or active bone destruction. Multilevel anterior degenerative marginal spurring, most prominent at C5-C6 and C6-C7. Disks: Mild disk degeneration at C3-C4, C4-C5 and C7-T1. Moderate to severe disk degeneration at C5-C6 and C6-C7. Facets: Minimal to mild appearing multilevel facet arthropathy. Soft Tissues: No focal prevertebral edema. Ill-defined soft tissue calcifications may be present in the neck and may be from carotid atherosclerosis. IMPRESSION: No evidence radiographically for acute fracture or dislocation. Mild alignment abnormality. Multilevel chronic appearing degenerative spondylosis, most severe at C5-C6 and C6-C7. RADIA
--- NOTE | 2019-06-20 21:48 | XRAY Report ---
Reason: PAIN IN BOTH CS TS FOLLOWING RECENT FALL Procedure Date: 06/20/2019 Accession Number: [id number] / [id number] Procedure: XR - Thoracic Spine 2 View CPT Code: Final Report FULL RESULT: EXAM: THORACIC SPINE RADIOGRAPHY EXAM DATE: 06/20/2019 11:51 AM. CLINICAL HISTORY: 64-year-old female. PAIN IN BOTH CS TS FOLLOWING RECENT FALL. COMPARISON: CHEST 2 VIEW 09/08/2017 9:22 PM. TECHNIQUE: 2 views. FINDINGS: Alignment: Normal. No spondylolisthesis or scoliosis. Bones: No fractures or bone lesions. Disks: Normal. Disk heights are maintained. Soft Tissues: Normal. The visualized lungs and cardiomediastinal silhouette are normal. IMPRESSION: Unremarkable thoracic spine radiography. RADIA
== END 2019-06-20 11:47 | disposition home or self-care (01) ==
LOC: DI 11:46
PROVIDERS: ATTEND Physician Assistant Medical
DX: M50.31 Other cervical disc degeneration, high cervical region (principal); M47.812 Spondylosis without myelopathy or radiculopathy, cervical region
CPT/HCPCS: 72040; 72070

== ENCOUNTER 2019-06-25 16:30 | Emergency (ER) | payer MEDICARE ==
[2019-06-25 17:07] LABS: BASOPHILS % (AUTO) 0.4 %; EOSINOPHILS # (AUTO) 0.1 10^3/uL (0.0-0.7); EOSINOPHILS % (AUTO) 0.9 %; HGB - HEMOGLOBIN 13.5 g/dL (12.0-16.0); LYMPHOCYTES % (AUTO) 18.6 %; MEAN CORPUSCULAR HEMOGLOBIN 31.2 pg (27.0-31.0); MEAN CORPUSCULAR HGB CONC 31.8 g/dL (32.0-36.0); MEAN CORPUSCULAR VOLUME 97.9 fL (81.0-99.0); MEAN PLATELET VOLUME 10.9 fL (7.9-10.8); MONOCYTES # (AUTO) 0.3 10^3/uL (0.0-1.0); MONOCYTES % (AUTO) 5.5 %; NEUTROPHILS # (AUTO) 4.1 10^3/uL (1.5-6.6); NEUTROPHILS % (AUTO) 74.4 %; PLT - PLATELET COUNT 175 10^3/uL (130-450); RED BLOOD COUNT 4.33 10^6/uL (4.20-5.40); RED CELL DISTRIBUTION WIDTH 12.7 % (12.0-15.0); WHITE BLOOD COUNT 5.5 x10^3/uL (4.8-10.8)
[2019-06-25] MEDS ORDERED: SODIUM CHLORIDE 0.9% 1,000 ML IV ONE (17:16)
[2019-06-25] MEDS ORDERED: ONDANSETRON 4 MG/2 ML VIAL IVP STA (17:16)
--- NOTE | 2019-06-25 17:17 | ED Physician Documentation ---
PD HPI ABD PAIN - Stated complaint Stated Complaint: LOW HEART RATE,IRREGULAR BP, N/V/D - Chief complaint Chief Complaint: Cardiac - History obtained from History obtained from: Patient (64-year-old woman on lithium, history of stroke, A. fib on Pradaxa, metoprolol as well. For the last 3 days she has had vomiting and diarrhea as well as vertigo. Headaches at night. She noted that her heart rate was slow at home on a home monitor in the 40s. No chest pain or trouble breathing.) Review of Systems Ten Systems: 10 systems reviewed and negative Constitutional: denies: Fever, Chills, Sweats Cardiac: denies: Chest pain / pressure, Palpitations, Pedal edema, Calf pain Respiratory: denies: Dyspnea PD PAST MEDICAL HISTORY - Past Medical History Cardiovascular: High cholesterol, Coronary artery disease, [place] Respiratory: None Endocrine/Autoimmune: Other Psych: Depression, Anxiety, Post traumatic stress disorder, Other Musculoskeletal: Osteoarthritis, Fatigue, Chronic back pain, Other - Past Surgical History Past Surgical History: Yes Ortho: Spine surgery Cardiovascular: Cardiac catheterization, Angioplasty - Present Medications Home Medications: Ambulatory Orders Medication Instructions Recorded Confirmed Aspirin 81 mg PO DAILY 08/01/16 08/01/16 Atorvastatin Calcium 80 mg PO QPM 08/01/16 06/25/19 Fluoxetine HCl [Prozac] 20 mg PO DAILY 08/01/16 08/01/16 Fluticasone Propionate 2 spray DARCIE DAILY 08/01/16 08/01/16 Hydrocodone/Acetaminophen 1 tab PO Q4H PRN 08/01/16 08/01/16 [Hydrocodone-APAP 10-325] Hydroxychloroquine [Plaquenil] 200 mg PO BID 08/01/16 08/01/16 Levothyroxine Sodium 125 mcg PO DAILY 08/01/16 08/01/16 Noble Carbonate 300 mg PO QPM 08/01/16 08/01/16 Losartan Potassium 12.5 mg PO DAILY 08/01/16 08/01/16 Metoprolol Tartrate 12.5 mg PO BID 08/01/16 06/25/19 Pilocarpine HCl 5 mg PO 5XD 08/01/16 08/01/16 Prazosin HCl 5 mg PO TID 08/01/16 06/25/19 Topiramate [Topamax] 100 mg PO DAILY 08/01/16 08/01/16 Trazodone HCl 100 mg PO QPM 08/01/16 06/25/19 Butalb/Acetaminophen/Caffeine 1 each PO Q4H PRN #20 capsule 10/05/17 [Fioricet 50-300-40 mg Capsule] Metoclopramide [Reglan] 10 mg PO Q6H PRN #20 tablet 10/05/17 Gabapentin 100 mg PO BID 06/25/19 06/25/19 Ondansetron Odt [Zofran] 4 mg TL Q6H PRN #10 tablet 06/25/19 - Allergies Allergies/Adverse Reactions: Allergies Allergy/AdvReac Type Severity Reaction Status Date / Time bupropion HCl * Allergy Anaphylaxis Verified 10/05/17 16:17 [From Wellbutrin] - Social History Does the pt smoke?: No Smoking Status: Never smoker Does the pt drink ETOH?: No Does the pt have substance abuse?: No - Immunizations Immunizations are current?: Yes - POLST Patient has POLST: No PD ED PE NORMAL - Vitals Vital signs reviewed: Yes - General General: Alert and oriented X 3 (Well-appearing woman laying in bed no distress) - HEENT HEENT: PERRL (Without nystagmus) - Neck Neck: Supple, no meningeal sign, No bony TTP - Cardiac Cardiac: RRR, No murmur - Respiratory Respiratory: No respiratory distress, Clear bilaterally - Abdomen Abdomen: Non tender - Back Back: No CVA TTP, No spinal TTP - Derm Derm: Normal color, Warm and dry - Extremities Extremities: No edema, No calf tenderness / cord, Other - Neuro Neuro: Alert and oriented X 3, Normal speech, Other (NIH stroke scale of 0. Fine tremor in the fingers.) - Psych Psych: Normal mood, Normal affect Results - Vitals Vitals: Vital Signs - 24 hr 06/25/19 06/25/19 06/25/19 16:37 17:04 17:30 Temperature 36.4 C L Heart Rate 43 L 52 L 46 L Respiratory 20 20 Rate Blood Pressure 129/52 L 114/72 115/52 L O2 Saturation 98 98 100 Oxygen O2 Source Room air - EKG (time done) 1649 Rate: Rate (enter#) (51) Rhythm: NSR Intervals: LBBB (incomplete) QRS: Normal, Low voltage Ischemia: Normal ST segments Computer interpretation: Agree with computer - Labs Labs: Laboratory Tests 06/25/19 06/25/19 06/25/19 17:00 17:00 17:00 WBC 5.5 RBC 4.33 Hgb 13.5 Hct 42.4 MCV 97.9 MCH 31.2 H MCHC 31.8 L RDW 12.7 Plt Count 175 MPV 10.9 H Neut # (Auto) 4.1 Lymph # (Auto) 1.0 L [place] # (Auto) 0.3 Eos # (Auto) 0.1 Baso # (Auto) 0.0 Absolute Nucleated RBC 0.00 Nucleated RBC % 0.0 Sodium 136 Potassium 3.2 L Chloride 106 Carbon Dioxide 21 Anion Gap 9.0 BUN 18 Creatinine 1.0 Estimated GFR (MDRD) 55 L Glucose 155 H Calcium 9.2 Total Bilirubin 0.5 AST 21 ALT 12 Alkaline Phosphatase 48 Troponin I High Sens 8.0 Total Protein 7.4 Albumin 4.2 Globulin 3.2 Albumin/Globulin Ratio 1.3 Lipase 24 Last Dose Date Last Dose Time Noble 06/25/19 17:00 WBC RBC Hgb Hct MCV MCH MCHC RDW Plt Count MPV Neut # (Auto) Lymph # (Auto) [place] # (Auto) Eos # (Auto) Baso # (Auto) Absolute Nucleated RBC Nucleated RBC % Sodium Potassium Chloride Carbon Dioxide Anion Gap BUN Creatinine Estimated GFR (MDRD) Glucose Calcium Total Bilirubin AST ALT Alkaline Phosphatase Troponin I High Sens Total Protein Albumin Globulin Albumin/Globulin Ratio Lipase Last Dose Date UNKNOWN Last Dose Time UNKNOWN Noble 0.58 - Rads (name of study) 1v chest Radiology: EMP read contemporaneously (normal) CT head Radiology: EMP read contemporaneously (Old Right CAN RUNNER infarct without acute disease) PD MEDICAL DECISION MAKING - ED course ED course: 64-year-old woman presents with bradycardia, she is on lithium and metoprolol. We will check a lithium level of course. It is in the setting of what sounds more like a gastroenteritis than anything else but the vertigo is worrisome despite a normal neurologic exam given the fact that she is also had some headaches and is anticoagulated. We will check a head CT. She was feeling much better after Zofran. Work-up only notable for mild hypokalemia which was repleted orally. Departure - Departure Disposition: 01 Home, Self Care Clinical Impression: Gastroenteritis, Hypokalemia, Vertigo, Adequate anticoagulation on anticoagulant therapy, Bradycardia Condition: Good Record reviewed to determine appropriate education?: Yes Instructions: Hypokalemia Dc, ED Dizziness UKO, ED Gastroenteritis Non Infec Prescriptions: Ondansetron Odt [Zofran] 4 mg TL Q6H PRN #10 tablet PRN Reason: Nausea / Vomiting Comments: Stop your metoprolol for now, follow-up with your yard worker, next available appointment. Return for new or worsening symptoms.
[2019-06-25 17:21] LABS: ALBUMIN 4.2 g/dL (3.2-5.5); ALBUMIN/GLOBULIN RATIO 1.3 (1.0-2.2); BILIRUBIN,TOTAL 0.5 mg/dL (0.2-1.0); CALCIUM 9.2 mg/dL (8.5-10.3); TOTAL PROTEIN 7.4 g/dL (6.7-8.2)
--- NOTE | 2019-06-25 17:30 | XRAY Report ---
Reason: Chest pain Procedure Date: 06/25/2019 Accession Number: [id number] / [id number] Procedure: XR - Chest 1 View X-Ray CPT Code: 64208 Final Report FULL RESULT: EXAM: CHEST RADIOGRAPHY EXAM DATE: 06/25/2019 05:10 PM. CLINICAL HISTORY: Chest pain. COMPARISON: THORACIC SPINE 2 VIEW 06/20/2019 11:51 AM CHEST 2 VIEW 09/08/2017 9:22 PM. TECHNIQUE: 1 view. FINDINGS: Lungs/Pleura: No focal opacities evident. No pleural effusion. No pneumothorax. Mediastinum: Within exam limitations, the cardiomediastinal contour is normal. Other: None. IMPRESSION: Stable negative single view chest. RADIA
[2019-06-25 17:43] LABS: LITHIUM 0.58 mmol/L
--- NOTE | 2019-06-25 18:42 | CT Report ---
Reason: vertigo Procedure Date: 06/25/2019 Accession Number: [id number] / [id number] Procedure: CT - HEAD WO CPT Code: Final Report FULL RESULT: EXAM: CT HEAD EXAM DATE: 06/25/2019 06:04 PM. CLINICAL HISTORY: Vertigo. COMPARISON: BRAIN W/WO 10/03/2017 11:21 AM HEAD W/O 09/08/2017 9:26 PM. TECHNIQUE: Multiaxial CT images were obtained from the foramen magnum to the vertex. Reformats: Sagittal and coronal. IV contrast: None. In accordance with CT protocol optimization, one or more of the following dose reduction techniques were utilized for this exam: automated exposure control, adjustment of mA and/or KV based on patient size, or use of iterative reconstructive technique. FINDINGS: Parenchyma: No intraparenchymal hemorrhage. No evidence of mass, midline shift, or CT findings of acute infarction. Old infarct right thalamus, right occipital lobe. Mendenhall-white differentiation is distinct. Extraaxial Spaces: Normal for age. No subdural or epidural collections identified. Ventricles: Normal in size and position. Sinuses and Orbits: Mucosal thickening left sphenoid sinus. Imaged orbits, and mastoids show no significant abnormality. Bones: No evidence of fracture or calvarial defect. Other: None. IMPRESSION: 1. No acute infarct. 2. Old right SAAS ARCHITECT infarct. RADIA
[2019-06-25] MEDS ORDERED: POTASSIUM CHLORIDE 20 MEQ TABLET PO STA (18:45)
[2019-06-25 19:13] VITALS: BP 112/46
== END 2019-06-25 19:25 | disposition home or self-care (01) ==
LOC: ED 16:30
DX: K52.9 Noninfective gastroenteritis and colitis, unspecified (principal); E87.6 Hypokalemia; R42 Dizziness and giddiness; I48.91 Unspecified atrial fibrillation; Z79.01 Long term (current) use of anticoagulants; R00.1 Bradycardia, unspecified; R51 Headache; Z86.73 Personal history of transient ischemic attack (TIA), and cerebral infarction without residual deficits; I25.10 Atherosclerotic heart disease of native coronary artery without angina pectoris; I25.2 Old myocardial infarction
CPT/HCPCS: 36415; 70450; 71045; 80053; 80178; 83690; 84484; 85025; 93005; 96361; 96374; 99283; 99284; A9270

== ENCOUNTER 2019-07-15 14:56 | Outpatient (CLI) | payer MEDICARE ==
[2019-07-15 15:16] LABS: BASOPHILS % (AUTO) 0.6 %; EOSINOPHILS # (AUTO) 0.2 10^3/uL (0.0-0.7); EOSINOPHILS % (AUTO) 3.6 %; HGB - HEMOGLOBIN 12.9 g/dL (12.0-16.0); LYMPHOCYTES % (AUTO) 20.6 %; MEAN CORPUSCULAR HEMOGLOBIN 30.9 pg (27.0-31.0); MEAN CORPUSCULAR HGB CONC 31.2 g/dL (32.0-36.0); MEAN PLATELET VOLUME 9.7 fL (7.9-10.8); MONOCYTES # (AUTO) 0.4 10^3/uL (0.0-1.0); MONOCYTES % (AUTO) 8.4 %; NEUTROPHILS # (AUTO) 3.2 10^3/uL (1.5-6.6); NEUTROPHILS % (AUTO) 66.6 %; PLT - PLATELET COUNT 211 10^3/uL (130-450); RED BLOOD COUNT 4.18 10^6/uL (4.20-5.40); RED CELL DISTRIBUTION WIDTH 13.2 % (12.0-15.0); WHITE BLOOD COUNT 4.8 x10^3/uL (4.8-10.8)
[2019-07-15 15:32] LABS: ALBUMIN/GLOBULIN RATIO 1.3 (1.0-2.2); ALKALINE PHOSPHATASE 51 IU/L (42-121); ALT ALANINE AMINOTRANSFERASE 14 IU/L (10-60); AST ASPARTATE AMINOTRANSFERASE 20 IU/L (10-42); BILIRUBIN,TOTAL 0.6 mg/dL (0.2-1.0); BUN - BLOOD UREA NITROGEN 11 mg/dL (6-20); CARBON DIOXIDE - CO2 24 mmol/L (21-32); CHLORIDE 106 mmol/L (101-111); CHOL/HDL RATIO 1.9 (<4.4); CHOLESTEROL 101 mg/dL; GLUCOSE 100 mg/dL (70-100); HDL CHOLESTEROL 54 mg/dL; LDL CHOLESTEROL,CALCULATED 33 mg/dL; LDL/HDL RATIO 0.6 (<4.4); SODIUM 137 mmol/L (135-145); VLDL CHOLESTEROL 14 mg/dL
[2019-07-15 15:47] LABS: LITHIUM 0.62 mmol/L
== END 2019-07-15 14:57 | disposition home or self-care (01) ==
LOC: LAB 14:56
PROVIDERS: ATTEND Psychiatry & Neurology Psychiatry
DX: F33.1 Major depressive disorder, recurrent, moderate (principal); F90.9 Attention-deficit hyperactivity disorder, unspecified type; F43.10 Post-traumatic stress disorder, unspecified
CPT/HCPCS: 36415; 80053; 80061; 80178; 83721; 85025